=== PATIENT | female | born 1970 | race Caucasian/White ===

== ENCOUNTER → 2019-07-27 08:23 | Outpatient (CLI) | payer OTHER, SELFPAY ==
--- NOTE | ~2019-07-27 | MMUS_ITS ---
EXAMINATION: MM diagnostic [place] RT w cindy, US breast RT limited HISTORY: Six-month follow-up of probable benign 8 x 4 x 7 mm lobulated hypoechoic mass at 6:00 4 cm f rom nipple TECHNIQUE: ML, MLO and cc 3-D tomosynthesis images of the right breast were performed and synthetic 2 -D images were generated. CAD analysis was submitted and interpreted. High resolution targeted 6:00 r ight breast ultrasound was performed. COMPARISON: 01/09/2019 diagnostic right digital mammogram and limited right breast ultrasound FINDINGS: MAMMOGRAPHIC FINDINGS: A circumscribed low-density lobulated approximately 6 mm opacity is noted in the lower central right breast in the inner aspect of the lower inner quadrant of the right breast. ULTRASOUND: At 6:00 4 cm from the nipple there is a parallel circumscribed 6.4 x 4 mm sonolucency without interna l vascularity or posterior shadowing. This has mildly diminished in size compared to 7.7 x 3.5 x 7.1 mm measurement on 01/09/2019. IMPRESSION: 1. No mammographic evidence of malignancy 2. Routine mammographic screening follow-up is recommended BI-RADS Category 2: Benign finding(s). Reviewed, dictated and finalized at location A. [employer] IMPRESSION: 1. No mammographic evidence of malignancy 2. Routine mammographic screening follow-up is recommended BI-RADS Category 2: Benign finding(s).
== END ==
PROVIDERS: PCP Family Medicine; Visit Provider Nurse Practitioner Family
DX: R92.8 Other abnormal and inconclusive findings on diagnostic imaging of breast (principal)
CPT/HCPCS: 76642; 77061; 77065; G0279

== ENCOUNTER → 2020-12-05 16:24 | Outpatient (CLI) | payer OTHER, SELFPAY ==
--- NOTE | ~2020-12-05 | MM_ITS ---
EXAMINATION: MM screening [facility] BI w cindy HISTORY: Screening mammogram TECHNIQUE: Craniocaudal and mediolateral oblique 3-D tomosynthesis images were obtained and synthetic 2-D images were generated. CAD analysis was submitted and interpreted. COMPARISON: 07/27/2020, 01/09/2019, 12/27/2018, 11/16/2017 BREAST PARENCHYMAL COMPOSITION: There are scattered areas of fibroglandular density. FINDINGS: There is no evidence of suspicious mass, calcification, or architectural distortion to sugg est malignancy in either breast. There has been no suspicious interval change. IMPRESSION: 1. No mammographic evidence of malignancy. 2. Recommend routine screening mammography in one year. BI-RADS Category 1: Negative Reviewed, dictated and finalized at location A.
== END ==
PROVIDERS: PCP Family Medicine; Visit Provider Physician Assistant
DX: Z12.31 Encounter for screening mammogram for malignant neoplasm of breast (principal)
CPT/HCPCS: 77063; 77067

== ENCOUNTER → 2021-02-13 03:43 | Outpatient (CLI) | payer OTHER, SELFPAY ==
[2021-02-13 20:11] LABS: SARS-CoV-2 RNA PCR Negative
== END ==
PROVIDERS: PCP Family Medicine; Visit Provider Family Medicine
DX: R68.89 Other general symptoms and signs (principal); Z20.822 Contact with and (suspected) exposure to COVID-19
CPT/HCPCS: C9803; U0003; U0005

== ENCOUNTER → 2021-02-17 08:50 | Outpatient (CLI) | payer OTHER, SELFPAY ==
--- NOTE | ~2021-02-17 | XR_ITS ---
EXAMINATION: XR chest 2V EXAM DATE: 02/17/2021 09:03 INDICATION: J18.9 - Pneumonia, unspecified organism. TECHNIQUE: Frontal and lateral projections of the chest obtained and reviewed. Comparison is made to prior examination from 06/01/2017. FINDINGS: The lungs are clear. There are no pleural effusions. The cardiomediastinal silhouette is within normal limits. There is no pneumothorax suspected. The bones and soft tissues are unremarkab le. IMPRESSION: No acute cardiopulmonary findings. Reviewed, dictated and finalized at location A.
== END ==
PROVIDERS: PCP Family Medicine; Visit Provider Family Medicine
DX: J18.9 Pneumonia, unspecified organism (principal)
CPT/HCPCS: 71046

== ENCOUNTER → 2022-07-06 12:08 | Outpatient (CLI) | payer OTHER, SELFPAY ==
--- NOTE | ~2022-07-06 | MM_ITS ---
EXAMINATION: MM screening [place] BI w cindy HISTORY: Screening mammogram TECHNIQUE: Craniocaudal and mediolateral oblique 3-D tomosynthesis images were obtained and synthetic 2-D images were generated. CAD analysis was submitted and interpreted. COMPARISON: 12/05/2020 bilateral screening mammogram 07/27/2019 and 01/09/2019 diagnostic right mammogram and limited right breast ultrasound examinations 12/27/2018 bilateral screening mammogram BREAST PARENCHYMAL COMPOSITION: There are scattered areas of fibroglandular density. FINDINGS: There is no evidence of suspicious mass, calcification, or architectural distortion to sugg est malignancy in either breast. There has been no suspicious interval change. IMPRESSION: 1. No mammographic evidence of malignancy. 2. Recommend routine screening mammography in one year. BI-RADS Category 1: Negative Reviewed, dictated and finalized at location A. 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
== END ==
PROVIDERS: PCP Family Medicine; Visit Provider Family Medicine
DX: Z12.31 Encounter for screening mammogram for malignant neoplasm of breast (principal)
CPT/HCPCS: 77063; 77067

== ENCOUNTER 2023-05-08 10:08 | Emergency (ER) | payer OTHER, SELFPAY ==
--- NOTE | ~2023-05-08 | XR_ITS ---
EXAMINATION: XR ankle RT min 3V DATE: 05/08/2023 10:42 INDICATION: Right ankle injury and pain and swelling. TECHNIQUE: 4 views of right ankle were obtained. COMPARISON: None. FINDINGS: Bone alignment is normal. No fracture. Joint spaces are normal. There are enthesophytes at the posterior and plantar aspects of calcaneal tuberosity. Ankle soft tissue swelling is noted. IMPRESSION: 1. No fracture. Reviewed, dictated and finalized at location A. 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 No fracture.
[2023-05-08 10:23] VITALS: BP 140/82; PULSE 53; RESP 18; TEMP 36; O2SAT 98
--- NOTE | 2023-05-08 10:29 | ED.LOWEXIN ---
HPI - Extremity Injury (Lower) General Chief Complaint: Extremity Injury, Lower Stated Complaint: rt ankle injury Time Seen by Provider: 05/08/23 10:29 Source: patient Mode of arrival: ambulatory Limitations: no limitations History of Present Illness HPI Narrative: 53 yo F presents with c/o R ankle pain and swelling after twisting ankle last night while walking down stairs. Ambulatory with steady gait. wants x-ray to make sure no fracture. Has been taking ibuprofen and rachele ice. states i dont think it's broken . All systems reviewed and negative except as noted above. Related Data Allergies Allergy/AdvReac Type Severity Reaction Status Date / Time Penicillins Allergy Unknown rash Verified 02/15/23 08:36 Review of Systems Review of Systems: CONSTITUTIONAL: Denies fever, chills, or sweats. EYES: Denies visual changes, redness, or discharge. ENT: Denies rhinorrhea, congestion, sore throat, or otalgia. CARDIOVASCULAR: Denies chest pain, palpitations, or edema. RESPIRATORY: Denies cough or dyspnea. GASTROINTESTINAL: Denies abdominal pain, nausea, vomiting, or diarrhea. GENITOURINARY: Denies dysuria or hematuria. SKIN: Denies rash or itching. MUSCULOSKELETAL: Denies back pain or myalgia. reports pain and swelling to R ankle NEUROLOGIC: Denies headache, numbness, or weakness. PSYCHIATRIC: Denies anxiety or depression. All other systems reviewed are negative, except as documented in HPI. [facility] Past Medical History Medical History Breast mass, right Fatigue History of paroxysmal supraventricular tachycardia Major depressive disorder, recurrent, moderate Stress incontinence s/p mid urethral sling Supraventricular tachycardia Vitamin D insufficiency Surgical History Surgical History History of cardiac radiofrequency ablation History of hysterectomy History of left oophorectomy Status post creation of urethral sling by suprapubic approach Family History Family History Father Depression Mother Depression Family history of osteoarthritis Social History Social History Social History: Years smoked: 1 Smoking status: Former smoker Tobacco type: cigarettes Second hand tobacco smoke exposure: No Smoking end date: 06/27/90 Alcohol intake: current Alcohol use details: rarely Substance use: never Substance use type: does not use Lack of Transportation: No Lack of Food: Never True Current Housing: I Have Housing Concerned About Future Housing: No Difficulty Paying Gas/Electric Bills: No Difficulty Paying for Meds: No Currently Unemployed: No Education: Decline to Answer Difficulty w/ Childcare or Family Care: No Living arrangements: with family Occupation/Education: occupation Gender identity (if verbalized by the patient): Female Sexual Orientation (if Verbalized by the Patient): Straight or Heterosexual Comments At time of signature, agree with nursing past medical, surgical, social and family history. There is no relevant family history pertinent to the presenting complaint. Exam Narrative: GENERAL: This is a well-nourished, well-developed patient, in no apparent distress. HEAD: normocephalic, atraumatic. EYES: PERRL. Sclera clear/white. Vision is grossly intact. EARS: External ears normal NOSE: External nose normal NECK: Neck supple, non-tender without lymphadenopathy, masses or thyromegaly. CARDIOVASCULAR: Regular rate and rhythm without murmurs, gallops, or rubs. RESPIRATORY: Clear to auscultation. Breath sounds equal bilaterally. No wheezes, rales, or rhonchi. SKIN: warm, Dry, intact with no suspicious lesions or rash, good texture and turgor. NEURO: awake, alert, and oriented to person, place and time. There were n
== END 2023-05-08 11:09 | disposition home or self-care (01) ==
PROVIDERS: Emergency Provider Nurse Practitioner Family; PCP Family Medicine
DX: S93.401A Sprain of unspecified ligament of right ankle, initial encounter (principal); X50.9XXA Other and unspecified overexertion or strenuous movements or postures, initial encounter
CPT/HCPCS: 73610; 99213; G0463

== ENCOUNTER 2024-02-07 11:54 | Emergency (ER) | payer OTHER, SELFPAY ==
--- NOTE | ~2024-02-07 | XR_ITS ---
EXAMINATION: XR chest 2V DATE: 02/07/2024 12:14 INDICATION: Palpitations. TECHNIQUE: Frontal and lateral views of the chest were obtained. COMPARISON: Chest 2 views 02/17/2021 FINDINGS: There is no pneumonia, pleural effusion, or pneumothorax. The heart size is normal. IMPRESSION: 1. No acute cardiopulmonary disease. Reviewed, dictated and finalized at location A.
[2024-02-07 11:55] VITALS: BP 137/95; PULSE 114; RESP 16; TEMP 36.4; O2SAT 98
--- NOTE | 2024-02-07 11:55 | ECG_ITS ---
Test Date: 2024-02-07 11:59:56 Measurements Intervals [place] Rate: 109 P: 37 [place]: 131 QRS: 6 QRSD: 82 T: 0 QT: 269 QTc: 362 Interpretive Statements SINUS TACHYCARDIA WITH OCCASIONAL SUPRAVENTRICULAR PREMATURE COMPLEXES NONSPECIFIC T-WAVE ABNORMALITY ABNORMAL RHYTHM ECG No previous ECG available for comparison Electronically Signed On 02-07-2024 12:02:31 CDT by Mona Boyce M.D.
[2024-02-07 12:12] LABS: Basophils Absolute Auto 0.1 K/mm3 (0.0-0.1); Basophils Percent Auto 0.8 % (0.2-1.2); Eosinophils Absolute Auto 0.4 K/mm3 (0-0.3); Eosinophils Percent Auto 3.6 % (0-4.4); Hematocrit 46.2 % (37.0-47.0); Hemoglobin 15.8 g/dL (12.0-15.0); Immature Granulocyte Absolute 0.04 K/mm3 (0.00-0.031); Immature Granulocyte Percent A 0.4 % (0-0.5); Lymphocytes Absolute Auto 2.26 K/mm3 (0.9-3.2); Lymphocytes Percent Auto 20.6 % (18.3-44.2); Mean Corpuscular HGB Conc 34.2 g/dl (32-36); Mean Corpuscular Hemoglobin 32.7 pg (26-34); Mean Corpuscular Volume 95.7 fl (80-100); Mean Platelet Volume 9.4 fl (7.4-10.4); Monocytes Absolute Auto 0.8 K/mm3 (0.1-0.6); Monocytes Percent Auto 7.4 % (2.6-8.5); Neutrophils Absolute Auto 7.4 K/mm3 (1.3-6.7); Neutrophils Percent Auto 67.2 % (45.5-73.1); Platelet Count Result 256 k/mm3 (150-375); Red Blood Count 4.83 M/mm3 (4.2-5.4); Red Cell Distribution Width 12.6 % (11.5-14.5)
[2024-02-07 12:21] LABS: Alanine Aminotransferase 42 U/L (6-35); Albumin Level 4.6 g/dL (3.5-5.1); Alkaline Phosphatase 98 U/L (38-126); Anion Gap 12 mmol/L (4-12); Aspartate Amino Transferase 50 U/L (14-36); Bilirubin,Total 0.3 mg/dL (0.2-1.3); Blood Urea Nitrogen 14 mg/dL (7-17); Calcium 9.3 mg/dL (8.4-10.2); Carbon Dioxide 27 mmol/L (22-30); Chloride 100 mmol/L (98-107); Estimated CRCL calculation 71 ml/min; Estimated Glomerular Filt Rate > 60; Glucose 104 mg/dL (65-110); Lipase 100 U/L (23-300); Sodium 139 mmol/L (137-145)
[2024-02-07 12:29] LABS: INR 0.9
[2024-02-07 12:31] LABS: Partial Thromboplastin Time 26.1 Seconds (22.3-36.8)
[2024-02-07 12:33] LABS: Troponin I < 0.012 ng/mL (0.000-0.034)
[2024-02-07 14:02] VITALS: BP 132/103; PULSE 102; RESP 18; TEMP 36.6; O2SAT 98
[2024-02-07 14:17] VITALS: BP 143/118; PULSE 95; RESP 19; O2SAT 95
[2024-02-07] MEDS: SODIUM CHLORIDE 0.9% IV 2,000 ML 999 ML IV CONT (14:18)
[2024-02-07 14:32] VITALS: BP 128/97; PULSE 88; RESP 16; TEMP 36.6; O2SAT 95
[2024-02-07 14:42] LABS: NT Pro B Type Natriuretic Pept 97 pg/mL (19.9-100)
[2024-02-07 14:57] LABS: D Dimer 0.36 ug/mL (<0.48)
[2024-02-07 15:00] LABS: Influenza A QL RT-PCR Negative (Negative); Influenza B QL RT-PCR Negative (Negative); RSV RNA, RT-PCR Negative (Negative); SARS-CoV-2 RNA PCR Negative (Negative)
[2024-02-07 15:19] LABS: Troponin I < 0.012 ng/mL (0.000-0.034)
--- NOTE | 2024-02-07 15:30 | ED.GENADULT ---
HPI - General Adult General Chief complaint: Arrhythmia/Palpitations Stated complaint: palpitations Time Seen by Provider: 02/07/24 13:36 History of Present Illness HPI narrative: This is a 54-year-old female presenting ED with chief complaint palpitations. Patient says that for the last 10 days she has been feeling unwell with nausea, vomiting, sore throat, dizziness and diarrhea. Patient typically has a bowel movement about once a week but says she has been going to the bathroom 3 times a day. Those symptoms have been improving however earlier today she felt like she may faint. She has also developed what she describes as heart pains but sound like palpitations and a throbbing sensation chest. Patient denies fevers chills headache shortness breath abdominal pain lower extremity edema or history of blood clots. Related Data Home Medications Medication Instructions Recorded Confirmed venlafaxine 150 mg 150 mg PO DAILY 08/08/23 01/19/24 capsule,extended release 24 hr (Effexor XR) Allergies Allergy/AdvReac Type Severity Reaction Status Date / Time Penicillins Allergy Unknown rash Verified 02/07/24 11:54 [facility] Past Medical History Medical History Breast mass, right Fatigue History of paroxysmal supraventricular tachycardia Major depressive disorder, recurrent, moderate Stress incontinence s/p mid urethral sling Supraventricular tachycardia Vitamin D insufficiency Surgical History Surgical History History of cardiac radiofrequency ablation History of hysterectomy History of left oophorectomy Status post creation of urethral sling by suprapubic approach Family History Family History Father Depression Mother Depression Family history of osteoarthritis Social History Social History Social History: Years smoked: 1 Smoking status: Former smoker Tobacco type: cigarettes Second hand tobacco smoke exposure: No Smoking end date: 06/27/90 Alcohol intake: current Alcohol use details: rarely Substance use: never Substance use type: does not use Lack of Transportation: No Lack of Food: Never True Current Housing: I Have Housing Concerned About Future Housing: No Difficulty Paying Gas/Electric Bills: No Difficulty Paying for Meds: No Currently Unemployed: No Education: Decline to Answer Difficulty w/ Childcare or Family Care: No Living arrangements: with family Occupation/Education: occupation Gender identity (if verbalized by the patient): Female Sexual Orientation (if Verbalized by the Patient): Straight or Heterosexual Exam Narrative: APPEARANCE: No apparent distress. Head: atraumatic. EYES: EOMI, NOSE: Atraumatic NECK: Trachea midline RESPIRATORY: No increased rate of breathing clear to auscultation CARDIOVASCULAR: Intermittently tachycardic with variations in heart rate 90-110 during the interview. No peripheral edema ABDOMINAL: Non-distended soft nontender MUSCULOSKELETAl: No obvious deformities NEURO: Alert. Moving 4/4 extremities SKIN:: Warm, dry. Normal color PSYCHIATRIC: Normal affect Course Vital Signs Vital signs: Vital Signs Temperature 97.6 F 02/07/24 11:55 Pulse Rate 114 H 02/07/24 11:55 Respiratory Rate 16 02/07/24 11:55 Blood Pressure 137/95 H 02/07/24 11:55 Pulse Oximetry 98 02/07/24 11:55 Oxygen Delivery Room Air 02/07/24 11:55 Temperature 97.9 F 02/07/24 14:32 Pulse Rate 88 02/07/24 14:32 Respiratory Rate 16 02/07/24 14:32 Blood Pressure 128/97 H 02/07/24 14:32 Pulse Oximetry 95 02/07/24 14:32 Oxygen Delivery Room Air 02/07/24 11:55 Medical Decision Making MDM Narrative Medical decision making narrative: -Course: This is a 54-year-old female with a h
[2024-02-07 15:47] VITALS: BP 123/95; PULSE 94; RESP 18; TEMP 36.6; O2SAT 98
== END 2024-02-07 15:54 | disposition home or self-care (01) ==
PROVIDERS: Emergency Medicine; Emergency Provider Emergency Medicine; PCP Family Medicine
DX: R07.89 Other chest pain (principal); E86.0 Dehydration; R55 Syncope and collapse; R19.7 Diarrhea, unspecified; Z20.822 Contact with and (suspected) exposure to COVID-19; E55.9 Vitamin D deficiency, unspecified; F33.9 Major depressive disorder, recurrent, unspecified; Z87.891 Personal history of nicotine dependence; Z90.710 Acquired absence of both cervix and uterus; Z90.721 Acquired absence of ovaries, unilateral; Z79.899 Other long term (current) drug therapy; I49.1 Atrial premature depolarization; R00.0 Tachycardia, unspecified; R94.31 Abnormal electrocardiogram [ECG] [EKG]
CPT/HCPCS: 36415; 71046; 80053; 83690; 83880; 84443; 84484; 85025; 85380; 85610; 85730; 87637; 93005; 96360; 99284; J7030

== ENCOUNTER 2024-04-09 13:38 | Outpatient (CLI) | payer OTHER, SELFPAY ==
--- NOTE | ~2024-04-09 | CT_ITS ---
CT brain wo con Ordering provider: Bessy Arango PA-C History: 54 years Female with . R41.89 - Other symptoms and signs involving cognitive fun... . Comparison: June 01, 2017 Technique: CT of the head without contrast. Radiation reduction technique utilized. The dose-length product was 599.57 mGy-cm. FINDINGS: BRAIN PARENCHYMA AND CSF SPACES: Mild leukoaraiosis and diffuse cortical atrophy. Mild atheromatous d isease. No midline shift, mass effect or hemorrhage. The brain parenchyma and CSF spaces are otherwi se normal. VISUALIZED PARANASAL SINUSES: Well aerated. MASTOIDS: Well aerated. BONES: The bones appear intact. SOFT TISSUES: Visualized nasopharynx is normal. Superficial soft tissues are normal. IMPRESSION: No acute intracranial findings. Reviewed, dictated and finalized at location A.
== END 2024-04-09 13:39 | disposition home or self-care (01) ==
LOC: MICIMG 13:38
PROVIDERS: PCP Family Medicine; Visit Provider Physician Assistant
DX: R41.89 Other symptoms and signs involving cognitive functions and awareness (principal); R41.3 Other amnesia
CPT/HCPCS: 70450

== ENCOUNTER 2024-05-17 01:10 | Day surgery (SDC) | payer OTHER, SELFPAY ==
[2024-05-04 14:05] VITALS: BMI 32.3
[2024-05-17 09:42] VITALS: BP 133/87; PULSE 89; RESP 20; TEMP 36.1; O2SAT 98; BMI 32.2
--- NOTE | 2024-05-17 09:55 | SUR.PREOP ---
Dr. Silvestre at bedside. Pt stated only has bm once a week and has not had an bowel movements since taking the prep. Dr. Silvestre explained to pt why colon needs to be cleaned out and that the procedure will need to be canceled. Pt stated understanding.
== END 2024-05-17 10:04 | disposition home or self-care (01) ==
PROVIDERS: PCP Family Medicine; Visit Provider Surgery
PROC: 0DJD8ZZ Inspection of Lower Intestinal Tract, Via Natural or Artificial Opening Endoscopic (ICD-10-PCS; CPT 45378; principal; 2024-05-17 11:00)
DX: Z12.11 Encounter for screening for malignant neoplasm of colon (principal); Z53.8 Procedure and treatment not carried out for other reasons
CPT/HCPCS: 99211; G0463

== ENCOUNTER 2024-07-20 08:35 | Emergency (ER) | payer OTHER, SELFPAY ==
--- NOTE | ~2024-07-20 | CT_ITS ---
EXAMINATION: CT brain wo con DATE: 07/20/2024 09:09 INDICATION: Altered mental status TECHNIQUE: Computed tomography (CT) of the head was performed without intravenous contrast. Sagittal and coronal reconstructions were performed. The mA was adjusted according to patient size. Iterative reconstruction technique was employed. The dose-length product was 605.33 mGy-cm. COMPARISON: head CT dated 04/09/2024 FINDINGS: No acute intracranial hemorrhage, acute infarction or abnormal extra axial fluid collection. Ventricl es are normal and symmetric. No mass/mass effect. The orbits, paranasal sinuses and mastoid air cells are normal. IMPRESSION: 1. Normal brain. Reviewed, dictated and finalized at location A. ENTRY SUPERVISOR IMPRESSION: 1. Normal brain.
--- NOTE | 2024-07-20 08:38 | ED.GENADULT ---
HPI - General Adult General Chief complaint: Unspecified Stated complaint: confusion? Unknown amount of time? Time Seen by Provider: 07/20/24 08:38 Source: patient Mode of arrival: wheelchair Limitations: no limitations History of Present Illness HPI narrative: 54-year-old with a history of depression was sent from doctor's office with increased confusion for past days. Patient states that for the last several days having problems at work forgetting things. This morning while she was at doctor's office she had a gait imbalance she was sent to ER for evaluation. Patient presently denies having any headache or chest pain. She states that she has could does see a neurologist on an outpatient basis sometime next month. Onset (ago): week(s) Severity: moderate Treatments prior to arrival: none Related Data Home Medications ?Medication ?Instructions ?Recorded ?Confirmed ?Last Taken ?Type atomoxetine 40 mg capsule 40 mg PO DAILY 05/04/24 07/20/24 05/15/24 History bupropion HCl 75 mg tablet 75 mg PO DAILY 05/04/24 07/20/24 05/15/24 History venlafaxine 75 mg capsule,extended 75 mg PO DAILY 05/04/24 07/20/24 05/15/24 History release 24 hr Allergies Allergy/AdvReac Type Severity Reaction Status Date / Time Penicillins Allergy Unknown rash Verified 07/20/24 08:36 Review of Systems Review of Systems: All systems reviewed & are unremarkable except as noted in HPI and below Constitutional: Constitutional: Reports no additional constitutional complaints Eyes: Eyes: Reports no additional eye complaints ENT: Reports system reviewed and no additional complaints, except as documented Cardiovascular: Cardiovascular: Reports no additional cardiovascular complaints Respiratory: Respiratory: Reports no additional respiratory complaints Gastrointestinal: Gastrointestinal: Reports no additional gastrointestinal complaints Musculoskeletal: Musculoskeletal: Reports no additional musculoskeletal complaints Neurologic: Reports as per HPI Psychiatric: Psychiatric: Reports no additional psychiatric complaints Endocrine: Endocrine: Reports no additional endocrine complaints [facility] Past Medical History Medical History Stress incontinence s/p mid urethral sling History of paroxysmal supraventricular tachycardia Breast mass, right Fatigue Vitamin D insufficiency Major depressive disorder, recurrent, moderate Supraventricular tachycardia Surgical History Surgical History Status post creation of urethral sling by suprapubic approach History of cardiac radiofrequency ablation History of left oophorectomy History of hysterectomy Family History Family History Father Depression Mother Depression Family history of osteoarthritis Social History Social History Social History: Years smoked: 1 Smoking status: Former smoker Tobacco type: cigarettes Second hand tobacco smoke exposure: No Smoking end date: 06/27/90 Alcohol intake: current Alcohol use details: rarely Substance use: never Substance use type: does not use Do You Feel Safe in your Home?: Yes Lack of Transportation: No Lack of Food: Never True Current Housing: I Have Housing Concerned About Future Housing: No Difficulty Paying Gas/Electric Bills: No Difficulty Paying for Meds: No Currently Unemployed: No Education: Don't Know Difficulty w/ Childcare or Family Care: No Living arrangements: with family Occupation/Education: occupation Gender identity (if verbalized by the patient): Female Sexual Orientation (if Verbalized by the Patient): Straight or Heterosexual Spiritual care concerns: No Exam Narrative: GENERAL: Well-appearing, well-nourished, and in no acute distress. HEAD: Normocephalic, atraumatic. EYES: PERRLA and EOMI. ENT: Nares clear, no rhinorrhea or epistaxis. Mucous membranes moist. NECK: Supple. CHEST: Clear to auscultation. No respiratory distress. HEART: Regular rate and rhythm. No murmur heard. Normal peripheral pulses. ABDOMEN: Soft, nontender, nondistended, normal active bowel sounds. EXTREMITIES: Normal range of motion. No edema. SKIN: Warm, dry, no rash. NEURO: No focal deficits. Alert and oriented x3. PSYCH: Normal mood and affect. Course Course Emergency Course: Patient remained asymptomatic here she was able to ambulate without any difficulty. I did inform her about the lab work, CT findings. Advised her to follow-up with her primary doctor as well as a neurologist. Vital Signs Vital signs: Vital Signs Temperature 36.4 C 07/20/24 08:42 Pulse Rate 83 07/20/24 08:42 Respiratory Rate 16 07/20/24 08:42 Blood Pressure 150/98 H 07/20/24 08:42 Pulse Oximetry 100 07/20/24 08:42 Oxygen Delivery Room Air 07/20/24 08:42 Temperature 36.4 C 07/20/24 08:42 Pulse Rate 77 07/20/24 09:44 Respiratory Rate 16 07/20/24 09:44 Blood Pressure 133/105 H 07/20/24 09:44 Pulse Oximetry 97 07/20/24 09:44 Oxygen Delivery Room Air 07/20/24 08:42 Medical Decision Making Medical Records Medical records reviewed: Yes I reviewed the external patient's medical records. Vital Signs Vital Signs: Vital Signs Temperature 36.4 C 07/20/24 08:42 Pulse Rate 83 07/20/24 08:42 Respiratory Rate 16 07/20/24 08:42 Blood Pressure 150/98 H 07/20/24 08:42 Pulse Oximetry 100 07/20/24 08:42 Oxygen Delivery Room Air 07/20/24 08:42 Temperature 36.4 C 07/20/24 08:42 Pulse Rate 77 07/20/24 09:44 Respiratory Rate 16 07/20/24 09:44 Blood Pressure 133/105 H 07/20/24 09:44 Pulse Oximetry 97 07/20/24 09:44 Oxygen Delivery Room Air 07/20/24 08:42 Lab Data Lab results reviewed: Yes I reviewed the patient's lab results. 07/20/24 08:56 07/20/24 08:56 Labs: Lab Results 07/20/24 07/20/24 Range/Units 08:56 10:52 WBC 7.6 (4.5-10.0) K/mm3 RBC 4.88 (4.2-5.4) M/mm3 Hgb 15.4 H (12.0-15.0) g/dL Hct 46.1 (37.0-47.0) % MCV 94.5 (80-100) fl MCH 31.6 (26-34) pg MCHC 33.4 (32-36) g/dl RDW 12.4 (11.5-14.5) % Plt Count 256 (150-375) k/mm3 MPV 9.5 (7.4-10.4) fl Immature Gran % (Auto) 0.3 (0-0.5) % Neut % (Auto) 51.6 (45.5-73.1) % Lymph % (Auto) 35.3 (18.3-44.2) % [place] % (Auto) 6.9 (2.6-8.5) % Eos % (Auto) 4.7 H (0-4.4) % Baso % (Auto) 1.2 (0.2-1.2) % Lymph # (Auto) 2.70 (0.9-3.2) K/mm3 [place] # (Auto) 0.5 (0.1-0.6) K/mm3 Eos # (Auto) 0.4 H (0-0.3) K/mm3 Baso # (Auto) 0.1 (0.0-0.1) K/mm3 Abs Immat Gran (auto) 0.02 (0.00-0.031) K/mm3 Absolute Neuts (auto) 3.9 (1.3-6.7) K/mm3 Absolute Nucleated RBC 0.000 (0.0-0.012) K/mm3 Nucleated RBC % 0.0 (0.0-0.2) % Sodium 137 (137-145) mmol/L Potassium 4.3 (3.4-5.0) mmol/L Chloride 100 (98-107) mmol/L Carbon Dioxide 27 (22-30) mmol/L Anion Gap 10 (4-12) mmol/L BUN 12 (7-17) mg/dL Creatinine 0.97 (0.7-1.0) mg/dL Estim Creat Clear Calc 65 ml/min Estimated GFR 60 (59 - ) Glucose 109 (65-110) mg/dL Calcium 9.5 (8.4-10.2) mg/dL Total Bilirubin 0.8 (0.2-1.3) mg/dL AST 37 H (14-36) U/L ALT 41 H (6-35) U/L Alkaline Phosphatase 100 (38-126) U/L Total Protein 8.0 (6.3-8.2) g/dL Albumin 4.7 (3.5-5.1) g/dL Urine Color Yellow (Yellow) Urine Appearance Clear (Clear) Urine pH 7.5 (5.0-9.0) Ur Specific [place] 1.015 (1.001-1.035) Urine Protein Negative (Negative) mg/dL Urine Glucose (UA) Negative (Negative) mg/dL Urine Ketones 2+ H (Negative) mg/dL Ur Blood (Man) Negative (Negative) Urine Nitrate Negative (Negative) Urine Bilirubin Negative (Negative) Urine Urobilinogen 1.0 (<2.0) mg/dL Leukocyte Esterase Rfl Negative (Negative) UZMA/UL Imaging Data Radiologist's impression: ITS Impressions Head CT 07/20/24 09:11 IMPRESSION: 1. Normal brain. ECG Data EKG #1: ECG completion date: 07/20/24 ECG completion time: 08:50 EKG Interpretation: normal rate (82), sinus rhythm, non-specific ST changes and no ST changes Discharge Plan Discharge Clinical Impression: Altered mental status Qualifiers: Altered mental status type: unspecified Qualified Code(s): R41.82 - Altered mental status, unspecified Patient Disposition: Home, Self-Care Condition: Stable Instructions: Antibiotic Form, Altered Mental Status (ED) Additional Instructions: continue home medications, follow with your doctor. Patient Language: Yi Prescriptions: No Action fluoxetine 20 mg capsule 20 mg PO QPM Qty: 30 1RF fluoxetine 40 mg capsule 40 mg PO QAM Qty: 30 1RF carvedilol 12.5 mg tablet 12.5 mg PO Q12H Qty: 60 4RF Rx Instructions: must administer with a meal/food memantine [Namenda] 5 mg tablet 5 mg PO BID Qty: 60 2RF omeprazole 20 mg capsule,delayed release(DR/EC) 20 mg PO DAILY 56 Days Qty: 56 0RF venlafaxine 75 mg capsule,extended release 24hr 75 mg PO DAILY bupropion HCl 75 mg Tablet 75 mg PO DAILY atomoxetine 40 mg Capsule 40 mg PO DAILY buspirone 10 mg tablet 10 mg PO TID Qty: 90 0RF Follow-up/Referrals: Patricio Mays MD [Primary Care Provider] - Time of Disposition: 11:33
--- NOTE | 2024-07-20 08:39 | ECG_ITS ---
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
[2024-07-20 08:42] VITALS: BP 150/98; PULSE 83; RESP 16; TEMP 36.4; O2SAT 100
--- OUTSIDE RECORDS SUMMARY | 2024-07-20 08:47 | XMS_ITS | Continuity of Care Document ---
Author Name [facility] Organization [facility] Care Team Providers Care Wood Box Maker Name Role Phone [facility] Unavailable Unavailable Allergies, Adverse Reactions, Alerts Combined list of allergies from Department of Defense and [facility] facilities. It does not include entries that were removed or entered in error. Substance Category Reaction Severity Reaction type Status Date Reported Comments Source PENICILLIN G (PENICILLIN G PROCAINE) Drug allergy (disorder) Unknown active 01/22/2008 [facility] [place] Encounters Combined list of: 1) Encounters from Department [facility] facilities going back up to thelast 18 months. 2) Encounters from the Department [facility] facilities going back up to 280 months. Location Location Details Encounter Type Encounter Number Reason For Visit Attending Provider ADM Date DC Date Status Disposition Source [facility] Outpatient Encounter [id number] 11/28 [facility] Procedures Combined list of: 1) Procedures from Department of [facility] facilities going back up to thelast 18 months, not all [place] non-surgical procedures are included; 2) All procedures from the Department [facility] facilities. Procedure Procedure Type Code Date Perfomer Comments Sourc e EKG (SCALP) 12/30/1992 [facility] EVACUATION OF OTHER HEMATOMA OF VULVA OR VAGINA 12/30/1992 [facility] REPAIR OF OTHER CURRENT OBSTETRIC LACERATION 12/30/1992 [facility] SCREENING PAPANICOLAOU SMEAR ; OBTAINING, PREPARING AND CONVEYANCE OF CERVICAL OR VAGINAL SMEAR TO LABORATORY 03/06/2004 [facility] DETERMINATION OF VENOUS PRESSURE 10/21/2003 [facility] SPECIAL REPORTS SUCH INSURANCE FORMS, MORE THAN THE INFORMATION CONVEYED IN THE USUAL MEDICAL COMMUNICATIONS OR STANDARD REPORTING FORM 08/16/2003 [facility] URINE TEST, BY VISUAL COLOR COMPARISON METHODS 08/13/2003 [facility] SCREENING PAPANICOLAOU SMEAR ; OBTAINING, PREPARING AND CONVEYANCE OF CERVICAL OR VAGINAL SMEAR TO LABORATORY 12/25/2002 [facility]D NONINVASIVE EAR OR PULSE OXIMETRY FOR OXYGEN SATURATION; SINGLE DETERMINATION 09/09/2002 [facility]D NONINVASIVE EAR OR PULSE OXIMETRY FOR OXYGEN SATURATION; SINGLE DETERMINATION 07/07/2002 [facility]D SPECIAL REPORTS SUCH INSURANCE FORMS, MORE THAN THE INFORMATION CONVEYED IN THE USUAL MEDICAL COMMUNICATIONS OR STANDARD REPORTING FORM 12/26/2001 [facility] SCREENING PAPANICOLAOU SMEAR ; OBTAINING, PREPARING AND CONVEYANCE OF CERVICAL OR VAGINAL SMEAR TO LABORATORY 10/16/2001 [facility] PSYCHIATRIC EVALUATION OF HOSPITAL RECORDS, OTHER PSYCHIATRIC REPORTS, PSYCHOMETRIC AND/OR PROJECTIVE TESTS, AND OTHER ACCUMULATED DATA FOR MEDICALDIAGNOSTIC PURPOSES 11/29/2000 [facility] PREPARATION OF REPORT OF PATIENT'S PSYCHIATRIC STATUS, HISTORY, TREATMENT, OR PROGRESS (OTHER THAN FOR LEGAL OR CONSULTATIVE PURPOSES) FOR OTHER INDIVIDUALS, AGENCIES, OR INSURANCE CARRIERS 11/28/2000 [facility] INDIVIDUAL PSYCHOTHERAPY, INSIGHT ORIENTED, BEHAVIOR MODIFYING AND/OR SUPPORTIVE, IN AN OFFICE OR OUTPATIENT FACILITY, APPROXIMATELY 45 TO 50 MINUTES [id number] WITH THE PATIENT 10/04/2000 [facility] COLPOSCOPY OF THE CERVIX INCLUDING UPPER/ADJACENT VAGINA; 10/03/2000 [facility] PSYCHIATRIC EVALUATION OF HOSPITAL RECORDS, OTHER PSYCHIATRIC REPORTS, PSYCHOMETRIC AND/OR PROJECTIVE TESTS, AND OTHER ACCUMULATED DATA FOR MEDICALDIAGNOSTIC PURPOSES 09/29/2000 [facility] DOPPLER ECHOCARDIOGRAPHY COLOR FLOW VELOCITY MAPPING (LIST SEPARATELY IN ADDITION TO CODES FOR ECHOCARDIOGRAPHY) 09/26/2000 [facility] ANALYSIS OF CLINICAL DATA STORED IN COMPUTERS (EG, ECGS, BLOOD PRESSURES, HEMATOLOGIC DATA) 09/23/2000 [facility] ELECTROCARDIOGRAM, ROUTINE ECG WITH AT LEAST 12 LEADS; TRACING ONLY, WITHOUT INTERPRETATION AND REPORT 09/22/2000 [facility] INDIVIDUAL PSYCHOTHERAPY, INSIGHT ORIENTED, BEHAVIOR MODIFYING AND/OR SUPPORTIVE, IN AN OFFICE OR OUTPATIENT FACILITY, APPROXIMATELY 45 TO 50 MINUTES [id number] WITH THE PATIENT 09/22/2000 [facility] FAMILY PSYCHOTHERAPY (CONJOINT PSYCHOTHERAPY) (WITH PATIENT PRESENT), 50 MINUTES 09/16/2000 [facility] INDIVIDUAL PSYCHOTHERAPY, INSIGHT ORIENTED, BEHAVIOR MODIFYING AND/OR SUPPORTIVE, IN AN OFFICE OR OUTPATIENT FACILITY, APPROXIMATELY 45 TO 50 MINUTES [id number] WITH THE PATIENT 09/16/2000 [facility] INDIVIDUAL PSYCHOTHERAPY, INSIGHT ORIENTED, BEHAVIOR MODIFYING AND/OR SUPPORTIVE, IN AN OFFICE OR OUTPATIENT FACILITY, APPROXIMATELY 45 TO 50 MINUTES [id number] WITH THE PATIENT 09/09/2000 [facility] INDIVIDUAL PSYCHOTHERAPY, INSIGHT ORIENTED, BEHAVIOR MODIFYING AND/OR SUPPORTIVE, IN AN OFFICE OR OUTPATIENT FACILITY, APPROXIMATELY 45 TO 50 MINUTES [id number] WITH THE PATIENT 09/01/2000 [facility] FAMILY PSYCHOTHERAPY (CONJOINT PSYCHOTHERAPY) (WITH PATIENT PRESENT), 50 MINUTES 08/30/2000 [facility] INDIVIDUAL PSYCHOTHERAPY, INSIGHT ORIENTED, BEHAVIOR MODIFYING AND/OR SUPPORTIVE, IN AN OFFICE OR OUTPATIENT FACILITY, APPROXIMATELY 45 TO 50 MINUTES [id number] WITH THE PATIENT 08/24/2000 [facility] PSYCHIATRIC DIAGNOSTIC INTERVIEW EXAMINATION 08/22/2000 [facility] THERAPEUTIC, PROPHYLACTIC OR DIAGNOSTIC INJECTION (SPECIFY MATERIAL INJECTED); SUBCUTANEOUS OR INTRAMUSCULAR 07/13/2000 DoD COLPOSCOPY OF THE CERVIX INCLUDING UPPER/ADJACENT VAGINA; 05/17/2000 DoD EAR PROTECTOR ATTENUATION MEASUREMENTS 04/13/2000 DoD HEPATITIS B VACCINE (HEPB), ADULT DOSAGE, 3 DOSE SCHEDULE, FOR INTRAMUSCULAR USE 04/08/2000 DoD Social History Combined list of available smoking, tobacco, and other social history from Department of Defense and Veterans Affairs facilities. Social History Type Response Date Comment Sourc e This section is an empty social history section. DoD
[2024-07-20 09:01] LABS: Basophils Absolute Auto 0.1 K/mm3 (0.0-0.1); Basophils Percent Auto 1.2 % (0.2-1.2); Eosinophils Absolute Auto 0.4 K/mm3 (0-0.3); Eosinophils Percent Auto 4.7 % (0-4.4); Hematocrit 46.1 % (37.0-47.0); Hemoglobin 15.4 g/dL (12.0-15.0); Immature Granulocyte Absolute 0.02 K/mm3 (0.00-0.031); Immature Granulocyte Percent A 0.3 % (0-0.5); Lymphocytes Percent Auto 35.3 % (18.3-44.2); Mean Corpuscular HGB Conc 33.4 g/dl (32-36); Mean Corpuscular Hemoglobin 31.6 pg (26-34); Mean Corpuscular Volume 94.5 fl (80-100); Mean Platelet Volume 9.5 fl (7.4-10.4); Monocytes Absolute Auto 0.5 K/mm3 (0.1-0.6); Monocytes Percent Auto 6.9 % (2.6-8.5); Neutrophils Absolute Auto 3.9 K/mm3 (1.3-6.7); Neutrophils Percent Auto 51.6 % (45.5-73.1); Platelet Count Result 256 k/mm3 (150-375); Red Blood Count 4.88 M/mm3 (4.2-5.4); Red Cell Distribution Width 12.4 % (11.5-14.5); White Blood Count 7.6 K/mm3 (4.5-10.0)
[2024-07-20 09:08] VITALS: PULSE 83
[2024-07-20 09:12] LABS: Alanine Aminotransferase 41 U/L (6-35); Albumin Level 4.7 g/dL (3.5-5.1); Alkaline Phosphatase 100 U/L (38-126); Anion Gap 10 mmol/L (4-12); Aspartate Amino Transferase 37 U/L (14-36); Bilirubin,Total 0.8 mg/dL (0.2-1.3); Blood Urea Nitrogen 12 mg/dL (7-17); Calcium 9.5 mg/dL (8.4-10.2); Carbon Dioxide 27 mmol/L (22-30); Chloride 100 mmol/L (98-107); Estimated CRCL calculation 65 ml/min; Estimated Glomerular Filt Rate 60; Glucose 109 mg/dL (65-110); Potassium 4.3 mmol/L (3.4-5.0); Sodium 137 mmol/L (137-145)
--- OUTSIDE RECORDS SUMMARY | 2024-07-20 09:35 | XMS_ITS | Continuity of Care Document ---
Author Name [facility] Organization [facility] Care Team Providers Care Percussion Welding Machine Operator Name Role Phone [facility] Unavailable Unavailable Allergies, Adverse Reactions, Alerts Combined list of allergies from Department of Defense and [facility] facilities. It does not include entries that were removed or entered in error. Substance Category Reaction Severity Reaction type Status Date Reported Comments Source PENICILLIN G (PENICILLIN G PROCAINE) Drug allergy (disorder) Unknown active 01/22/2008 [facility] [place] Encounters Combined list of: 1) Encounters from [facility] facilities going back up to thelast 18 months. 2) Encounters from the Department [facility] facilities going back up to 280 months. Location Location Details Encounter Type Encounter Number Reason For Visit Attending Provider ADM Date DC Date Status Disposition Source [facility] Outpatient Encounter [id number] 11/28 [facility] Procedures Combined list of: 1) Procedures from Department of [facility] facilities going back up to thelast 18 months, not all [place] non-surgical procedures are included; 2) All procedures from the Department [facility] facilities. Procedure Procedure Type Code Date Perfomer Comments Sourc e EKG (SCALP) 12/30/1992 [facility] EVACUATION OF OTHER HEMATOMA OF VULVA OR VAGINA 12/30/1992 [facility] REPAIR OF OTHER CURRENT OBSTETRIC LACERATION 12/30/1992 [facility] SCREENING PAPANICOLAOU SMEAR ; OBTAINING, PREPARING AND CONVEYANCE OF CERVICAL OR VAGINAL SMEAR TO LABORATORY 03/06/2004 [facility] DETERMINATION OF VENOUS PRESSURE 10/21/2003 DoD SPECIAL REPORTS SUCH INSURANCE FORMS, MORE THAN THE INFORMATION CONVEYED IN THE USUAL MEDICAL COMMUNICATIONS OR STANDARD REPORTING FORM 08/16/2003 DoD URINE TEST, BY VISUAL COLOR COMPARISON METHODS 08/13/2003 [facility] SCREENING PAPANICOLAOU SMEAR ; OBTAINING, PREPARING AND CONVEYANCE OF CERVICAL OR VAGINAL SMEAR TO LABORATORY 12/25/2002 DoD NONINVASIVE EAR OR PULSE OXIMETRY FOR OXYGEN SATURATION; SINGLE DETERMINATION 09/09/2002 DoD NONINVASIVE EAR OR PULSE OXIMETRY FOR OXYGEN SATURATION; SINGLE DETERMINATION 07/07/2002 DoD SPECIAL REPORTS SUCH INSURANCE FORMS, MORE THAN THE INFORMATION CONVEYED IN THE USUAL MEDICAL COMMUNICATIONS OR STANDARD REPORTING FORM 12/26/2001 [facility] SCREENING PAPANICOLAOU SMEAR ; OBTAINING, PREPARING AND CONVEYANCE OF CERVICAL OR VAGINAL SMEAR TO LABORATORY 10/16/2001 [facility]D PSYCHIATRIC EVALUATION OF HOSPITAL RECORDS, OTHER PSYCHIATRIC REPORTS, PSYCHOMETRIC AND/OR PROJECTIVE TESTS, AND OTHER ACCUMULATED DATA FOR MEDICALDIAGNOSTIC PURPOSES 11/29/2000 [facility] PREPARATION OF REPORT OF PATIENT'S PSYCHIATRIC STATUS, HISTORY, TREATMENT, OR PROGRESS (OTHER THAN FOR LEGAL OR CONSULTATIVE PURPOSES) FOR OTHER INDIVIDUALS, AGENCIES, OR INSURANCE CARRIERS 11/28/2000 [facility] INDIVIDUAL PSYCHOTHERAPY, INSIGHT ORIENTED, BEHAVIOR MODIFYING AND/OR SUPPORTIVE, IN AN OFFICE OR OUTPATIENT FACILITY, APPROXIMATELY 45 TO 50 MINUTES [id number] WITH THE PATIENT 10/04/2000 [facility]D COLPOSCOPY OF THE CERVIX INCLUDING UPPER/ADJACENT VAGINA; 10/03/2000 [facility] PSYCHIATRIC EVALUATION OF HOSPITAL RECORDS, OTHER PSYCHIATRIC REPORTS, PSYCHOMETRIC AND/OR PROJECTIVE TESTS, AND OTHER ACCUMULATED DATA FOR MEDICALDIAGNOSTIC PURPOSES 09/29/2000 [facility] DOPPLER ECHOCARDIOGRAPHY COLOR FLOW VELOCITY MAPPING (LIST SEPARATELY IN ADDITION TO CODES FOR ECHOCARDIOGRAPHY) 09/26/2000 [facility] ANALYSIS OF CLINICAL DATA STORED IN COMPUTERS (EG, ECGS, BLOOD PRESSURES, HEMATOLOGIC DATA) 09/23/2000 [facility] ELECTROCARDIOGRAM, ROUTINE ECG WITH AT LEAST 12 LEADS; TRACING ONLY, WITHOUT INTERPRETATION AND REPORT 09/22/2000 [facility] INDIVIDUAL PSYCHOTHERAPY, INSIGHT ORIENTED, BEHAVIOR MODIFYING AND/OR SUPPORTIVE, IN AN OFFICE OR OUTPATIENT FACILITY, APPROXIMATELY 45 TO 50 MINUTES [id number] WITH THE PATIENT 09/22/2000 DoD FAMILY PSYCHOTHERAPY (CONJOINT PSYCHOTHERAPY) (WITH PATIENT PRESENT), 50 MINUTES 09/16/2000 DoD INDIVIDUAL PSYCHOTHERAPY, INSIGHT ORIENTED, BEHAVIOR MODIFYING AND/OR SUPPORTIVE, IN AN OFFICE OR OUTPATIENT FACILITY, APPROXIMATELY 45 TO 50 MINUTES [id number] WITH THE PATIENT 09/16/2000 [facility] INDIVIDUAL PSYCHOTHERAPY, INSIGHT ORIENTED, BEHAVIOR MODIFYING AND/OR SUPPORTIVE, IN AN OFFICE OR OUTPATIENT FACILITY, APPROXIMATELY 45 TO 50 MINUTES [id number] WITH THE PATIENT 09/09/2000 [facility] INDIVIDUAL PSYCHOTHERAPY, INSIGHT ORIENTED, BEHAVIOR MODIFYING AND/OR SUPPORTIVE, IN AN OFFICE OR OUTPATIENT FACILITY, APPROXIMATELY 45 TO 50 MINUTES [id number] WITH THE PATIENT 09/01/2000 DoD FAMILY PSYCHOTHERAPY (CONJOINT PSYCHOTHERAPY) (WITH PATIENT PRESENT), 50 MINUTES 08/30/2000 DoD INDIVIDUAL PSYCHOTHERAPY, INSIGHT ORIENTED, BEHAVIOR MODIFYING AND/OR SUPPORTIVE, IN AN OFFICE OR OUTPATIENT FACILITY, APPROXIMATELY 45 TO 50 MINUTES [id number] WITH THE PATIENT 08/24/2000 [facility]D PSYCHIATRIC DIAGNOSTIC [...]
[2024-07-20 09:44] VITALS: BP 133/105; PULSE 77; RESP 16; O2SAT 97
[2024-07-20 10:58] LABS: Add Urine Microscopic? NO; Appearance Urine Clear (Clear); Bilirubin Urine Negative (Negative); Blood Urine Negative (Negative); Color Urine Yellow (Yellow); Glucose Urine UA Negative (Negative); Ketones Urine 2+ mg/dL (Negative); Leukocyte Esterase Ur Negative LEU/UL (Negative); Nitrate Urine Negative (Negative); Protein Urine Negative (Negative); Specific Grav Ur 1.015 (1.001-1.035); pH Urine 7.5 (5.0-9.0)
--- NOTE | 2024-07-20 11:25 | PC.NURSE ---
Walked pretty good with no help to the restroom
[2024-07-20 12:14] VITALS: BP 122/94; PULSE 74; RESP 20; O2SAT 100
== END 2024-07-20 12:16 | disposition home or self-care (01) ==
PROVIDERS: Emergency Provider Family Medicine; PCP Family Medicine
DX: R41.82 Altered mental status, unspecified (principal); E55.9 Vitamin D deficiency, unspecified; F33.9 Major depressive disorder, recurrent, unspecified; Z87.891 Personal history of nicotine dependence; Z90.710 Acquired absence of both cervix and uterus; Z90.721 Acquired absence of ovaries, unilateral; Z79.899 Other long term (current) drug therapy
CPT/HCPCS: 36415; 70450; 80053; 81003; 85025; 93005; 99284

== ENCOUNTER 2024-08-21 08:55 | Outpatient (CLI) | payer OTHER, SELFPAY ==
--- OUTSIDE RECORDS SUMMARY | 2024-08-21 09:38 | XMS_ITS | Clinical Summary ---
Author Organization [facility] [place] [place] [address] Address [address] [place] [address] Care Team Providers Care Metal Base Blocker Name Role Phone Marquita Rodríguez MD Primary Care Provider Allergies Active Allergy Reactions Criticality Noted Date Comments Penicillins Other (See comments) Reaction: Unknown, , , Reaction: Unknown, Medications venlafaxine (EFFEXOR) 75 mg tablet Take 75 mg by mouth daily. 05/11/2017 Active carvedilol (COREG) 25 mg tablet Take 25 mg by mouth 2 (two) times a day with meals. Active cholecalciferol (VITAMIN D-3) 50,000 unit capsuleIndicati ons:Vitamin D Deficiency (High Dose Therapy) Take 1 capsule (50,000 Units total) by mouth once a week. 4 capsule 3 06/21/2017 Active Active Problems Problem Noted Date Diagnosed Date History of prior ablation treatment 06/10/2017 Palpitations 06/10/2017 PSVT (paroxysmal supraventricular tachycardia) Surgical History Surgery Date Site/Laterality Comments OTHER SURGICAL HISTORY 2004 AVRT ablation OTHER SURGICAL HISTORY R atrial ablation- 09/17/03 OTHER SURGICAL HISTORY ablation isolation of R pulm veins- 09/28/03 OTHER SURGICAL HISTORY hysterectomy with right oophorectomy Medical History Medical History Date Comments Hx Other Medical Cardiomyopathy- resolved (tachy induced) Hx Other Medical AVRT- s/p ablat ion Hx Other Medical hx tobacco use PSVT (paroxysmal supraventri cular tachycardia) (HCC) Cardiomyopathy (HCC) Social History Tobacco Use Types Packs/Day Years Used Date Smoking Tobacco: Former Smokeless Tobacco: Never Alcohol Use Standard Drinks/Week Comments Yes 0 (1 standard drink = 0.6 oz pur e alcohol) Personal Safety Answer Date Recorded Getting School Help Needed Not on file 09/10 Comments Unknown Sex and Gender Information Value Date Recorded Sex Assigned at Not on file Legal Sex Female 2:00 AM EQUIPMENT OPERATOR Gender Identity Not on file Sexual Orientation Not on file Obstetrics History Last Filed Vital Signs Vital Sign Reading Time Taken Comments Blood Pressure 96/70 06/10/2017 9:14 AM EQUIPMENT OPERATOR Pulse 90 07/05/2017 11:49 AM EQUIPMENT OPERATOR Temperature 36.4 C (97.5 F) 07/03/2020 8:16 AM EQUIPMENT OPERATOR Respiratory Rate - - Oxygen Saturation 95% 07/05/2017 11: 49 AM EQUIPMENT OPERATOR Inhaled Oxygen Concentration - - Weight 83.9 kg (184 lb 14.4 oz) 018 11:49 AM EQUIPMENT OPERATOR Height 168.9 cm (5' 6.5 ) 07/05/2017 11 :49 AM EQUIPMENT OPERATOR Body Mass Index 29.4 07/05/2017 11:49 AM EQUIPMENT OPERATOR Plan of Treatment Not on file Insurance [facility] HMO/PPO Address: [address] [address] Care Teams Metal Base Blocker Relationship Specialty Start Date End Date Marquita Rodríguez MD [address] [facility] [address] [place] [address] [facility] - General 01/18/14
--- OUTSIDE RECORDS SUMMARY | 2024-08-21 09:38 | XMS_ITS | Continuity of Care Document ---
Author Name [facility] Organization [facility] Care Team Providers Care Push Bench Operator Helper Name Role Phone [facility] Unavailable Unavailable Allergies, Adverse Reactions, Alerts Combined list of allergies from Department of Defense and Veterans Affairs facilities. It does not include entries that were removed or entered in error. Substance Category Reaction Severity Reaction type Status Date Reported Comments Source PENICILLIN G (PENICILLIN G PROCAINE) Drug allergy (disorder) Unknown active 01/22/2008 [facility] [place] Encounters Combined list of: 1) Encounters from [facility] facilities going backup to the last 18 months, not all [place] inpatient encounters are included; 2) Encounters from the Department [facility] facilities going backup to 280 months. Location Location Details Encounter Type Encounter Number Reason For Visit Attending Provider ADM Date DC Date Status Disposition Source [facility] Outpatient Encounter [id number] 11/28 [facility] Procedures Combined list of: 1) Procedures from Department [facility] facilities going back up to thelast 18 months, not all [place] non-surgical procedures are included; 2) All procedures from the [facility] facilities. Procedure Procedure Type Code Date Perfomer Comments Sourc e EKG (SCALP) 12/30/1992 [facility] EVACUATION OF OTHER HEMATOMA OF VULVA OR VAGINA 12/30/1992 [facility] REPAIR OF OTHER CURRENT OBSTETRIC LACERATION 12/30/1992 [facility] SCREENING PAPANICOLAOU SMEAR ; OBTAINING, PREPARING AND CONVEYANCE OF CERVICAL OR VAGINAL SMEAR TO LABORATORY 03/06/2004 [facility] DETERMINATION OF VENOUS PRESSURE 10/21/2003 [facility]D SPECIAL REPORTS SUCH INSURANCE FORMS, MORE THAN THE INFORMATION CONVEYED IN THE USUAL MEDICAL COMMUNICATIONS OR STANDARD REPORTING FORM 08/16/2003 DoD URINE TEST, BY VISUAL COLOR COMPARISON METHODS 08/13/2003 [facility] SCREENING PAPANICOLAOU SMEAR ; OBTAINING, PREPARING AND CONVEYANCE OF CERVICAL OR VAGINAL SMEAR TO LABORATORY 12/25/2002 DoD NONINVASIVE EAR OR PULSE OXIMETRY FOR OXYGEN SATURATION; SINGLE DETERMINATION 09/09/2002 DoD NONINVASIVE EAR OR PULSE OXIMETRY FOR OXYGEN SATURATION; SINGLE DETERMINATION 07/07/2002 DoD SPECIAL REPORTS SUCH INSURANCE FORMS, MORE THAN THE INFORMATION CONVEYED IN THE USUAL MEDICAL COMMUNICATIONS OR STANDARD REPORTING FORM 12/26/2001 [facility] SCREENING PAPANICOLAOU SMEAR ; OBTAINING, PREPARING AND CONVEYANCE OF CERVICAL OR VAGINAL SMEAR TO LABORATORY 10/16/2001 [facility] PSYCHIATRIC EVALUATION OF HOSPITAL RECORDS, OTHER PSYCHIATRIC REPORTS, PSYCHOMETRIC AND/OR PROJECTIVE TESTS, AND OTHER ACCUMULATED DATA FOR MEDICALDIAGNOSTIC PURPOSES 11/29/2000 [facility] PREPARATION OF REPORT OF PATIENT'S PSYCHIATRIC STATUS, HISTORY, TREATMENT, OR PROGRESS (OTHER THAN FOR LEGAL OR CONSULTATIVE PURPOSES) FOR OTHER INDIVIDUALS, AGENCIES, OR INSURANCE CARRIERS 11/28/2000 [facility]D INDIVIDUAL PSYCHOTHERAPY, INSIGHT ORIENTED, BEHAVIOR MODIFYING AND/OR SUPPORTIVE, IN AN OFFICE OR OUTPATIENT FACILITY, APPROXIMATELY 45 TO 50 MINUTES [id number] WITH THE PATIENT 10/04/2000 [facility] COLPOSCOPY OF THE CERVIX INCLUDING UPPER/ADJACENT VAGINA; 10/03/2000 [facility] PSYCHIATRIC EVALUATION OF HOSPITAL RECORDS, OTHER PSYCHIATRIC REPORTS, PSYCHOMETRIC AND/OR PROJECTIVE TESTS, AND OTHER ACCUMULATED DATA FOR MEDICALDIAGNOSTIC PURPOSES 09/29/2000 [facility] DOPPLER ECHOCARDIOGRAPHY COLOR FLOW VELOCITY MAPPING (LIST SEPARATELY IN ADDITION TO CODES FOR ECHOCARDIOGRAPHY) 09/26/2000 [facility] ANALYSIS OF CLINICAL DATA STORED IN COMPUTERS (EG, ECGS, BLOOD PRESSURES, HEMATOLOGIC DATA) 09/23/2000 [facility] ELECTROCARDIOGRAM, ROUTINE ECG WITH AT LEAST 12 LEADS; TRACING ONLY, WITHOUT INTERPRETATION AND REPORT 09/22/2000 [facility] INDIVIDUAL PSYCHOTHERAPY, INSIGHT ORIENTED, BEHAVIOR MODIFYING AND/OR SUPPORTIVE, IN AN OFFICE OR OUTPATIENT FACILITY, APPROXIMATELY 45 TO 50 MINUTES [id number] WITH THE PATIENT 09/22/2000 DoD FAMILY PSYCHOTHERAPY (CONJOINT PSYCHOTHERAPY) (WITH PATIENT PRESENT), 50 MINUTES 09/16/2000 [facility]D INDIVIDUAL PSYCHOTHERAPY, INSIGHT ORIENTED, BEHAVIOR MODIFYING AND/OR SUPPORTIVE, IN AN OFFICE OR OUTPATIENT FACILITY, APPROXIMATELY 45 TO 50 MINUTES [id number] WITH THE PATIENT 09/16/2000 [facility] INDIVIDUAL PSYCHOTHERAPY, INSIGHT ORIENTED, BEHAVIOR MODIFYING AND/OR SUPPORTIVE, IN AN OFFICE OR OUTPATIENT FACILITY, APPROXIMATELY 45 TO 50 MINUTES [id number] WITH THE PATIENT 09/09/2000 [facility] INDIVIDUAL PSYCHOTHERAPY, INSIGHT ORIENTED, BEHAVIOR MODIFYING AND/OR SUPPORTIVE, IN AN OFFICE OR OUTPATIENT FACILITY, APPROXIMATELY 45 TO 50 MINUTES [id number] WITH THE PATIENT 09/01/2000 DoD FAMILY PSYCHOTHERAPY (CONJOINT PSYCHOTHERAPY) (WITH PATIENT PRESENT), 50 MINUTES 08/30/2000 [facility]D INDIVIDUAL PSYCHOTHERAPY, INSIGHT ORIENTED, BEHAVIOR MODIFYING AND/OR SUPPORTIVE, IN AN OFFICE OR OUTPATIENT FACILITY, APPROXIMATELY 45 TO 50 MINUTES [id number] WITH THE PATIENT 08/24/2000 DoD PSYCHIATRIC DIAGNOSTIC [...] facilities. Social History Type Response Date Comment Sour e This section is an empty social history section. DoD
--- OUTSIDE RECORDS SUMMARY | 2024-08-21 09:38 | XMS_ITS | Referral Summary ---
Author Organization [facility] [address] Address [address] [place] [address] Care Team Providers Care Bench Worker Name Role Phone Marquita Rodríguez MD Primary [...] 06/10/2017 Palpitations 06/10/2017 PSVT (paroxysmal supraventricular tachycardia) Social History Tobacco Use Types Packs/Day Years [...] on file Legal Sex Female 2:00 AM CORNCOB PIPES ASSEMBLER Gender Identity Not on file Sexual Orientation Not on file Last Filed Vital Signs Vital Sign Reading Time Taken Comments Blood Pressure 96/70 06/10/2017 9:14 AM CORNCOB PIPES ASSEMBLER Pulse 90 07/05/2017 11:49 AM CORNCOB PIPES ASSEMBLER Temperature 36.4 C (97.5 F) 07/03/2020 8:16 AM CORNCOB PIPES ASSEMBLER Respiratory Rate - - Oxygen Saturation 95% 07/05/2017 11: 49 AM CORNCOB PIPES ASSEMBLER Inhaled Oxygen Concentration - - Weight 83.9 kg (184 lb 14.4 oz) 018 11:49 AM CORNCOB PIPES ASSEMBLER Height 168.9 cm (5' 6.5 ) 07/05/2017 11 :49 AM CORNCOB PIPES ASSEMBLER Body Mass Index 29.4 07/05/2017 11:49 AM CORNCOB PIPES ASSEMBLER Plan of Treatment Not on file Insurance [facility] Care Teams Bench Worker Relationship Specialty Start Date End Date Marquita Rodríguez MD [address] [facility] [address] [place] [address] PCP - General 01/18/14
[2024-08-21 10:52] LABS: Folic Acid 15.4 ng/mL (2.76->20)
[2024-08-25 03:49] LABS: Methylmalonic Acid 137 nmol/L (55-335)
== END 2024-08-21 08:56 | disposition home or self-care (01) ==
LOC: ANHLAB 08:58
PROVIDERS: PCP Family Medicine; Visit Provider Psychiatry & Neurology Neurology
DX: F33.2 Major depressive disorder, recurrent severe without psychotic features (principal); E55.9 Vitamin D deficiency, unspecified
CPT/HCPCS: 36415; 82607; 82652; 82746; 83921

== ENCOUNTER 2024-08-29 12:11 | Outpatient (CLI) | payer OTHER, SELFPAY ==
--- NOTE | ~2024-08-29 | MR_ITS ---
EXAMINATION: MR brain/brain stem wo/w con DATE: 08/29/2024 13:18 INDICATION: Multiple sclerosis. Headache. Dizziness. TECHNIQUE: Magnetic resonance imaging (MRI) of the brain and brainstem was performed without and with 15 mL ProHance intravenous contrast. COMPARISON: Head CT 07/20/2024 FINDINGS: There are 3 foci of increased T2-weighted signal intensity in the cerebral white matter, wh ich is normal for the patient's age. There is no intracranial hemorrhage, acute infarction, or abnorm al intracranial mass lesion. The ventricles are normal in size. The paranasal sinuses are clear. The orbits are normal. The mastoid air cells are normal. IMPRESSION: 1. Normal brain. Reviewed, dictated and finalized at location A. ET MASTER IMPRESSION: 1. Normal brain.
== END 2024-08-29 12:12 | disposition home or self-care (01) ==
LOC: MICIMG 12:14
PROVIDERS: PCP Family Medicine; Visit Provider Psychiatry & Neurology Neurology
DX: G35 Multiple sclerosis (principal); F33.2 Major depressive disorder, recurrent severe without psychotic features
CPT/HCPCS: 70553; A9579

== ENCOUNTER 2024-09-12 09:35 | Outpatient (CLI) | payer OTHER, SELFPAY ==
[2024-09-12 10:03] LABS: Basophils Absolute Auto 0.1 K/mm3 (0.0-0.1); Basophils Percent Auto 0.9 % (0.2-1.2); Eosinophils Absolute Auto 0.2 K/mm3 (0-0.3); Eosinophils Percent Auto 2.4 % (0-4.4); Hematocrit 44.1 % (37.0-47.0); Hemoglobin 14.2 g/dL (12.0-15.0); Immature Granulocyte Absolute 0.03 K/mm3 (0.00-0.031); Immature Granulocyte Percent A 0.5 % (0-0.5); Lymphocytes Absolute Auto 2.42 K/mm3 (0.9-3.2); Lymphocytes Percent Auto 36.9 % (18.3-44.2); Mean Corpuscular HGB Conc 32.2 g/dl (32-36); Mean Corpuscular Hemoglobin 30.7 pg (26-34); Mean Corpuscular Volume 95.2 fl (80-100); Mean Platelet Volume 9.5 fl (7.4-10.4); Monocytes Absolute Auto 0.7 K/mm3 (0.1-0.6); Monocytes Percent Auto 11.1 % (2.6-8.5); Neutrophils Absolute Auto 3.2 K/mm3 (1.3-6.7); Neutrophils Percent Auto 48.2 % (45.5-73.1); Platelet Count Result 270 k/mm3 (150-375); Red Blood Count 4.63 M/mm3 (4.2-5.4); Red Cell Distribution Width 12.9 % (11.5-14.5); White Blood Count 6.6 K/mm3 (4.5-10.0)
[2024-09-12 10:19] LABS: Alanine Aminotransferase 27 U/L (6-35); Albumin Level 4.5 g/dL (3.5-5.1); Alkaline Phosphatase 74 U/L (38-126); Anion Gap 7 mmol/L (4-12); Aspartate Amino Transferase 30 U/L (14-36); Bilirubin,Total 0.6 mg/dL (0.2-1.3); Blood Urea Nitrogen 8 mg/dL (7-17); Calcium 9.7 mg/dL (8.4-10.2); Carbon Dioxide 30 mmol/L (22-30); Chloride 103 mmol/L (98-107); Estimated Glomerular Filt Rate > 60; Glucose 98 mg/dL (65-110); Potassium 3.9 mmol/L (3.4-5.0); Sodium 140 mmol/L (137-145)
[2024-09-12 10:25] LABS: Hemoglobin A1C 5.8 % (<5.7)
--- OUTSIDE RECORDS SUMMARY | 2024-09-12 10:42 | XMS_ITS | Referral Summary ---
Author Organization [facility] [address] Address [address] [place] [address] Care Team Providers Care Dip Dyer Name Role Phone Serina Cook Primary Care Provide r Encounters Date Type Department Care Team Description 09/10/2024 10:15 AM CDT Office Visit [facility] Department of Psychiatry [address] [place] [phone] Magdalena Dougherty NP Unspecified neurocognitive disorder (Primary Dx); Moderate episode of recurrent major depressive disorder (HCC) 09/07/2024 9:00 AM CDT Clinical Support [facility] Neuro Psychology [address] [address] Dawna Lucas, PhD Severe episode of recurrent major depressive disorder, without psychotic features (HCC) 08/30/2024 Telephone [facility] Psychiatry [address] [place], [place] [phone] Maria Luisa Jain CMA 08/27/2024 10:15 AM ADMINISTRATIVE LAW JUDGE Office Visit [facility] Department of Psychiatry [address] [address] Magdalena Dougherty NP Unspecified neurocognitive disorder (Primary Dx); Depression, unspecified depression type from Last 3 Months Allergies Active Allergy Reactions Criticality Noted Date Comments Penicillins Other (See comments) Reaction: Unknown, , , Reaction: Unknown, Medications venlafaxine (EFFEXOR) 75 mg tablet Take 75 mg by mouth daily. 7 Active carvedilol (COREG) 25 mg tablet Take 0.5 tablets (12.5 mg total) by mouth 2 (two) times a day with meals Active memantine (NAMENDA) 5 mg tabletIndicatio ns:Moderate to Severe Alzheimer's Type Dementia Take 1 tablet (5 mg total) by mouth daily Active atomoxetine (STRATTERA) 100 mg capsule Take 1 capsule (100 mg total) by mouth daily Active buPROPion (WELLBUTRIN) 75 mg tablet Take 1 tablet (75 mg total) by mouth 2 (two) times a day Active cholecalciferol (VITAMIN D-3) 50,000 unit capsuleIndicati ons:Vitamin D Deficiency (High Dose Therapy) Take 1 capsule (50,000 Units total) by mouth once a week. 4 capsule 3 7 08/28/19 25 Discontinu ed(Patient Reported) Active Problems Problem Noted Date Diagnosed Date Unspecified neurocognitive disorder 09/11/2024 Depression 08/27/2024 History of prior ablation treatment 06/10/2017 Palpitations 06/10/2017 PSVT (paroxysmal supraventricular tachycardia) Social History Tobacco Use Types Packs/Day Years Used Date Smoking Tobacco: Former Cigarettes Q uit: 06/27/1989 Smokeless Tobacco: Never Tobacco Cessation:Counseling Given: Not Answered Comments:She cannot recall when she quit smoking or how much she smoked Alcohol Use Standard Drinks/Week Comments Yes 0 (1 standard drink = 0.6 oz pur e alcohol) AUDIT-C Answer Date Recorded Q1: How often do you have a drink containing alcohol? Never 08/27/2024 Q2: How many drinks containi ng alcohol do you have on a typical day when you are drinking? Patient does not drink Q3: How often do you have si x or more drinks on one occasion? Never 08/27/2024 Comments Unknown Sex and Gender Information Value Date Recorded Sex Assigned at Not on file Legal Sex Female 2:00 AM ADMINISTRATIVE LAW JUDGE Gender Identity Not on file Sexual Orientation Not on file Last Filed Vital Signs Vital Sign Reading Time Taken Comments Blood Pressure 130/97 09/10/2024 10:04 AM CDT Pulse 81 09/10/2024 10:04 AM CDT Temperature 36.4 C (97.5 F) 07/03/2020 8:16 AM ADMINISTRATIVE LAW JUDGE Respiratory Rate - - Oxygen Saturation 95% 07/05/2017 11: 49 AM ADMINISTRATIVE LAW JUDGE Inhaled Oxygen Concentration - - Weight 83.4 kg (183 lb 12.8 oz) 025 10:04 AM CDT Height 167.6 cm (5' 6 ) 08/27/2024 10:2 2 AM ADMINISTRATIVE LAW JUDGE Body Mass Index 29.67 08/27/2024 10:22 AM ADMINISTRATIVE LAW JUDGE Plan of Treatment Not on file Insurance [facility] Care Teams Dip Dyer Relationship Specialty Start Date End Date Serina Cook PA [address] [facility] [address] [place] [address] PCP - General Physician Ingredient Mixer 08/24/24
--- OUTSIDE RECORDS SUMMARY | 2024-09-12 10:42 | XMS_ITS | Clinical Summary ---
Author Organization [facility] [address] Address [address] [place] [address] Care Team Providers Care Food Bagging Machine Operator Name Role Phone Serina Cook Primary Care Provide r Allergies Active Allergy Reactions Criticality Noted Date [...] 06/10/2017 Palpitations 06/10/2017 PSVT (paroxysmal supraventricular tachycardia) Encounters Date Type Department Care Team Description 09/10/2024 10:15 AM CDT Office Visit [facility] Department of Psychiatry [address] [facility] [address] [place] [phone] Magdalena Dougherty, BLESSING Unspecified neurocognitive disorder (Primary Dx); Moderate episode of recurrent major depressive disorder (HCC) 09/07/2024 9:00 AM CDT Clinical Support [facility] Neuro Psychology [address] [facility] [address] [place] [address] Dawna Lucas, PhD Severe episode of recurrent major depressive disorder, without psychotic features (HCC) 08/30/2024 Telephone [facility] Psychiatry [address] [place] [phone] Maria Luisa Jain CMA 08/27/2024 10:15 AM SILK SCREEN PRINTING RACKER Office Visit [facility] Department of Psychiatry [address] [facility] [address] [place] [address] Magdalena Dougherty NP Unspecified neurocognitive disorder (Primary Dx); Depression, unspecified depression type from Last 3 Months Surgical History Surgery Date Site/Laterality Comments OTHER SURGICAL HISTORY 2003 AVRT ablation OTHER SURGICAL HISTORY R atrial ablation- 09/17/03 OTHER SURGICAL HISTORY ablation isolation of R pulm veins- 09/28/03 OTHER SURGICAL HISTORY hysterectomy with right oophorectomy Medical History Medical History Date Comments Hx Other Medical Cardiomyopathy- resolved (tachy induced) Hx Other Medical AVRT- s/p ablat ion Hx Other Medical hx tobacco use PSVT (paroxysmal supraventri cular tachycardia) Cardiomyopathy (HCC) Social History Tobacco Use Types [...] on file Legal Sex Female 2:00 AM SILK SCREEN PRINTING RACKER Gender Identity Not on file Sexual Orientation Not on file Obstetrics History Last Filed Vital Signs Vital Sign Reading Time Taken Comments Blood Pressure 130/97 09/10/2024 10:04 AM CDT Pulse 81 09/10/2024 10:04 AM CDT Temperature 36.4 C (97.5 F) 07/03/2020 8:16 AM SILK SCREEN PRINTING RACKER Respiratory Rate - - Oxygen Saturation 95% 07/05/2017 11: 49 AM SILK SCREEN PRINTING RACKER Inhaled Oxygen Concentration - - Weight 83.4 kg (183 lb 12.8 oz) 025 10:04 AM CDT Height 167.6 cm (5' 6 ) 08/27/2024 10:2 2 AM SILK SCREEN PRINTING RACKER Body Mass Index 29.67 08/27/2024 10:22 AM SILK SCREEN PRINTING RACKER Plan of Treatment Health Maintenance Due Date Last Done Comments Breast Cancer Screening-Mammogram 1970 Cervical Cancer Screening 1970 Colon Cancer Screening-Colonoscopy 1970 Depression Screening 1970 Hepatitis C Screening 1970 DTaP/Tdap/Td Vaccine (1 - Tdap) 1981 Hepatitis B Screening 01/10/1988 Regular Well Visit/Exam 18-64 01/10/1988 Zoster Vaccine (1 of 2) 01/10/2020 Influenza Vaccine (#1) 2024 0, 04/26/2013 Pneumococcal vaccine <65 Aged Out No longer eligible based on patient's age to complete this topic Insurance [facility] H[facility]/PPO Address: [address] [address] [place] [address] R [facility] H[facility]/PPO Address: [address] [place] [id number] Care Teams Food Bagging Machine Operator Relationship Specialty Start Date End Date Serina Cook PA [address] [facility] [address] [place], [place] [phone] PCP - General Physician Baker Bench 08/24/24
--- OUTSIDE RECORDS SUMMARY | 2024-09-12 10:42 | XMS_ITS | Continuity of Care Document ---
Author Name [facility] Organization [facility] Care Team Providers Care Resolution Specialist Name Role Phone [facility] Unavailable Unavailable Encounters Combined list of: 1) Encounters from Department of Veterans Affairs facilities going backup to the last 18 months, not all VA inpatient encounters are included; 2) Encounters from the Department of Defense facilities going backup to 280 months. Location Location Details Encounter Type Encounter Number Reason For Visit Attending Provider ADM Date DC Date Status Disposition Source [facility] Outpatient Encounter [id number] 11/28 [facility]
--- OUTSIDE RECORDS SUMMARY | 2024-09-12 10:42 | XMS_ITS | Encounter Summary ---
Author Organization [facility] Address [address] [place] [address] Phone Care Team Providers Care Lead Android Developer Name Role Phone Serina Cook Primary Care Provide r Reason for Visit * Reason Comments Memory Loss MDD (Major Depressive Disorder) Encounter Details Date Type Department Care Team (Late st Contact Info) Description 09/10/2024 10:15 AM CDT Office Visit [facility] Department of Psychiatry [address] [facility] [address] [place] [address] Magdalena Roe NP [phone] [facility] [address] [place] [address] Unspecified neurocognitive disorder (Primary Dx); Moderate episode of recurrent major depressive disorder (HCC) Social History Tobacco Use Types Packs/Day [...] on file Legal Sex Female 2:00 AM EMBEDDED SOFTWARE MANAGER Gender Identity Not on file Sexual Orientation Not on file documented as of this encounter Last Filed Vital Signs Vital Sign Reading Time Taken Comments Blood Pressure 130/97 09/10/2024 10:04 AM CDT Pulse 81 09/10/2024 10:04 AM CDT Temperature - - Respiratory Rate - - Oxygen Saturation - - Inhaled Oxygen Concentration - - Weight 83.4 kg (183 lb 12.8 oz) 025 10:04 AM CDT Height - - Body Mass Index 29.67 08/27/2024 10:22 AM EMBEDDED SOFTWARE MANAGER documented in this encounter Miscellaneous Notes * Addendum Note - Magdalena Roe NP - 09/10/2024 10:15 AM CDTAddended by: MAGDALENA ROE on: 09/11/2024 02:34 PM Modules accepted: Orders documented in this encounter Plan of Treatment Scheduled Orders Name Type Priority Associated Diagnoses Orde r Schedule CBC with auto differential Lab Routine Unspecified neurocognitive disorder Expected: 09/18/2024 (Approximate), Expires: 09/11/2025 Comprehensive metabolic panel Lab Routine Unspecified neurocognitive disorder Expected: 09/18/2024 (Approximate), Expires: 09/11/2025 Thyroid Function [place] Lab Routine Unspecified neurocognitive disorder Expected: 09/14/2024, Expires: 09/11/2025 Drugs of Abuse Screen, Urine without Confirmation Lab Routine Unspecified neurocognitive disorder Expected: 09/14/2024, Expires: 09/11/2025 Urinalysis reflex to microscopic and culture Urine Microbiology Routine Unspecified neurocognitive disorder Expected: 09/14/2024, Expires: 09/11/2025 documented as of this encounter Visit Diagnoses Diagnosis Unspecified neurocognitive disorder- Primary Moderate episode of recurrent major depressive disorder (HCC) documented in this encounter Historical Medications * This list may reflect changes made after this encounter. buPROPion (WELLBUTRIN) 75 mg tablet Take 1 tablet (75 mg total) by mouth 2 (two) times a day atomoxetine (STRATTERA) 100 mg capsule Take 1 capsule (100 mg total) by mouth daily memantine (NAMENDA) 5 mg tabletIndications :Moderate to Severe Alzheimer's Type Dementia Take 1 tablet (5 mg total) by mouth daily added in this encounter Care Teams Lead Android Developer Relationship Specialty Start Date End Date Serina Cook PA [address] [facility] [address] [place] [phone] PCP - General Physician Police Crime Scene Technician 08/24/24 documented as of this encounter
== END 2024-09-12 09:36 | disposition home or self-care (01) ==
LOC: ANHLAB 09:37
PROVIDERS: PCP Family Medicine; Visit Provider Student in an Organized Health Care Education/Training Program
DX: R35.89 Other polyuria (principal); R63.1 Polydipsia; R73.01 Impaired fasting glucose; R74.01 Elevation of levels of liver transaminase levels; R41.3 Other amnesia
CPT/HCPCS: 36415; 80053; 83036; 84443; 85025

== ENCOUNTER 2024-10-26 09:12 | Emergency (ER) | payer OTHER, SELFPAY ==
[2024-10-26 09:16] VITALS: BP 150/108; PULSE 91; RESP 16; TEMP 36.9; O2SAT 99
[2024-10-26 09:41] LABS: BEDSIDEPREGUCG Negative (Negative)
[2024-10-26 09:48] LABS: Basophils Absolute Auto 0.1 K/mm3 (0.0-0.1); Basophils Percent Auto 1.1 % (0.2-1.2); Eosinophils Absolute Auto 0.1 K/mm3 (0-0.3); Hematocrit 44.8 % (37.0-47.0); Hemoglobin 14.5 g/dL (12.0-15.0); Immature Granulocyte Absolute 0.02 K/mm3 (0.00-0.031); Immature Granulocyte Percent A 0.3 % (0-0.5); Lymphocytes Absolute Auto 2.55 K/mm3 (0.9-3.2); Lymphocytes Percent Auto 36.4 % (18.3-44.2); Mean Corpuscular HGB Conc 32.4 g/dl (32-36); Mean Corpuscular Hemoglobin 30.9 pg (26-34); Mean Corpuscular Volume 95.5 fl (80-100); Mean Platelet Volume 9.5 fl (7.4-10.4); Monocytes Absolute Auto 0.7 K/mm3 (0.1-0.6); Monocytes Percent Auto 10.1 % (2.6-8.5); Neutrophils Absolute Auto 3.5 K/mm3 (1.3-6.7); Neutrophils Percent Auto 50.1 % (45.5-73.1); Platelet Count Result 259 k/mm3 (150-375); Red Blood Count 4.69 M/mm3 (4.2-5.4); Red Cell Distribution Width 13.1 % (11.5-14.5)
[2024-10-26 10:00] LABS: Add Urine Microscopic? NO; Appearance Urine Clear (Clear); Bilirubin Urine Negative (Negative); Blood Urine Negative (Negative); Color Urine Yellow (Yellow); Glucose Urine UA Negative (Negative); Ketones Urine Trace mg/dL (Negative); Leukocyte Esterase Ur Negative LEU/UL (Negative); Nitrate Urine Negative (Negative); Protein Urine Negative (Negative); Specific Grav Ur 1.011 (1.001-1.035)
[2024-10-26 10:07] LABS: Alanine Aminotransferase 47 U/L (6-35); Albumin Level 4.5 g/dL (3.5-5.1); Alkaline Phosphatase 100 U/L (38-126); Anion Gap 12 mmol/L (4-12); Aspartate Amino Transferase 41 U/L (14-36); Bilirubin,Total 0.7 mg/dL (0.2-1.3); Blood Urea Nitrogen 7 mg/dL (7-17); Calcium 9.5 mg/dL (8.4-10.2); Carbon Dioxide 25 mmol/L (22-30); Chloride 101 mmol/L (98-107); Estimated CRCL calculation 65 ml/min; Estimated Glomerular Filt Rate > 60; Glucose 105 mg/dL (65-110); Potassium 3.6 mmol/L (3.4-5.0); Sodium 138 mmol/L (137-145)
[2024-10-26 10:12] LABS: Ethanol < 10 mg/dL (<10)
[2024-10-26 10:26] LABS: Influenza A QL RT-PCR Negative (Negative); Influenza B QL RT-PCR Negative (Negative); RSV RNA, RT-PCR Negative (Negative); SARS-CoV-2 RNA PCR Negative (Negative)
[2024-10-26 10:30] LABS: Amphetamine Screen Urine Negative (Negative); Barbiturate Screen Urine Negative (Negative); Benzodiazepines Screen Urine Negative (Negative); Cannabinoid Screen Urine Negative (Negative); Cocaine Screen Urine Negative (Negative); Methadone Screen Urine Negative (Negative); Opiate Screen Urine Negative (Negative); Phencyclidine Screen Urine Negative (Negative)
--- NOTE | 2024-10-26 12:00 | ED_ITS ---
HPI - Psych General Chief Complaint: Psychiatric Symptoms Stated Complaint: SI History of Present Illness HPI Narrative: Patient is a 54-year-old female who presents to the ER with suicidal ideation. She reports she has lost her in February 2024. Patient reports since that time she has been worked for memory loss issues and has a neurologist. She reports she has had chronic suicidal thoughts since her passed, but last night she developed a plan. Patient reports she was planning on going to the drug store and buying multiple prescriptions. She had also considered lighting her house on fire. Patient reports she settled on the plan to sit in her garage with her car on and take multiple medications at the same time. It is unclear as to why patient did not follow through with her plan last night, but she presents to the ER with her late 's mother and neighbor, who are very concerned about her mental health. Patient reports she no longer feels purpose in living. She reports she has seen a psychiatrist in the past, but has never gone through the emergency department for psych evaluation. Patient reports she has been prescribed Effexor but takes it intermittently. She denies any physical pain at the time of examination, headaches, recent fevers, back pain, or abdominal pain. Patient reports she continues to have intermittent memory loss so neurology has prescribed her multiple medications to help relieve her symptoms. Related Data Home Medications ?Medication ?Instructions ?Recorded ?Confirmed ?Last Taken ?Type atomoxetine 40 mg capsule 40 mg PO DAILY 05/04/24 10/17/24 05/15/24 History bupropion HCl 75 mg tablet 75 mg PO DAILY 05/04/24 10/17/24 05/15/24 History venlafaxine 75 mg capsule,extended 75 mg PO DAILY 05/04/24 10/17/24 05/15/24 History release 24 hr Allergies Allergy/AdvReac Type Severity Reaction Status Date / Time Penicillins Allergy Unknown rash Verified 10/26/24 09:25 Review of Systems 2 Review of Systems: All systems reviewed & are unremarkable except as noted in HPI and below PMFSH Past Medical History Medical History Memory loss Stress incontinence s/p mid urethral sling History of paroxysmal supraventricular tachycardia Breast mass, right Fatigue Vitamin D insufficiency Major depressive disorder, recurrent, moderate Supraventricular tachycardia Surgical History Surgical History Status post creation of urethral sling by suprapubic approach History of cardiac radiofrequency ablation History of left oophorectomy History of hysterectomy Family History Family History Father Depression Mother Depression Family history of osteoarthritis Social History Social History Social History: Years smoked: 1 Smoking status: Former smoker Tobacco type: cigarettes Second hand tobacco smoke exposure: No Smoking end date: 06/27/90 Alcohol intake: current Alcohol use details: rarely Substance use: never Substance use type: does not use Do You Feel Safe in your Home?: Yes Lack of Transportation: No Lack of Food: Never True Current Housing: I Have Housing Concerned About Future Housing: No Difficulty Paying Gas/Electric Bills: No Difficulty Paying for Meds: No Currently Unemployed: No Education: Don't Know Difficulty w/ Childcare or Family Care: No Living arrangements: with family Occupation/Education: occupation Gender identity (if verbalized by the patient): Female Sexual Orientation (if Verbalized by the Patient): Straight or Heterosexual Spiritual care concerns: No Exam 2 Narrative: GENERAL: Well appearing, well-nourished, non-toxic, in no acute distress. HEAD: Normocephalic, atraumatic. NECK: Supple. No adenopathy, no masses. RESPIRATORY: Airway patent, respirations nonlabored. Clear to auscultation bilaterally, no rales, rhonchi, wheezing. CARDIOVASCULAR: Regular rate and rhythm without murmurs, rubs, or gallops. Peripheral pulses 2+ and equal bilaterally. ABDOMINAL: Soft, nontender, nondistended, no hepatosplenomegaly. Normoactive BS. MUSCULOSKELETAL: Moves all extremities. Strength/ROM intact without gross deformities. SKIN: Warm, dry, normal color. No rashes. NEURO: A&O X3. Speech clear. Cranial nerves II-XII intact. No ataxic movements. PSYCHIATRIC: Tearful and flat affect. Normal interaction. Course Vital Signs Vital signs: Vital Signs Temperature 98.4 F 10/26/24 09:16 Pulse Rate 91 10/26/24 09:16 Respiratory Rate 16 10/26/24 09:16 Blood Pressure 150/108 H 10/26/24 09:16 Pulse Oximetry 99 10/26/24 09:16 Oxygen Delivery Room Air 10/26/24 09:16 Temperature 97.8 F 10/26/24 17:52 Pulse Rate 84 10/26/24 17:52 Respiratory Rate 18 10/26/24 17:52 Blood Pressure 137/90 10/26/24 17:52 Pulse Oximetry 98 10/26/24 17:52 Oxygen Delivery Room Air 10/26/24 09:16 MDM - Psych MDM Narrative Medical decision making narrative: Patient is a 54-year-old female who presents to the ER with suicidal ideation. She reports she has lost her in February 2024. Patient reports since that time she has been worked for memory loss issues and has a neurologist. She reports she has had chronic suicidal thoughts since her passed, but last night she developed a plan. Patient reports she was planning on going to the drug store and buying multiple prescriptions. She had also considered lighting her house on fire. Patient reports she settled on the plan to sit in her garage with her car on and take multiple medications at the same time. It is unclear as to why patient did not follow through with her plan last night, but she presents to the ER with her late 's mother and neighbor, who are very concerned about her mental health. Patient reports she no longer feels purpose in living. She reports she has seen a psychiatrist in the past, but has never gone through the emergency department for psych evaluation. Patient reports she has been prescribed Effexor but takes it intermittently. She denies any physical pain at the time of examination, headaches, recent fevers, back pain, or abdominal pain. Patient reports she continues to have intermittent memory loss so neurology has prescribed her multiple medications to help relieve her symptoms. Labs Ordered: CBC, CMP, TSH, UDS, UA, ethanol Imaging Ordered: None necessary (pt has had multiple CT head scans and head MRIs d/t her chronic memory loss) Medications Ordered: None necessary Results: Patient's lab work was unremarkable for any acute concerning values. Diagnosis: Suicidal ideation, depression Consults: mental health intake Patient Education/Shared MDM: 1200- Pt is medically cleared for mental health intake. Mental health intake assessed pt and advises pt should be admitted for further mental health evaluation and care. Pt verbalizes understanding and is in agreement with plan. She will have a regular diet ordered. Pt was accepted to [facility]. Vital signs were stable at time of discharge. Pt continues to be A&Ox4. All questions answered prior to discharge. Differential Diagnosis Differential diagnosis: Likely acute psychosis, suicidal ideation, bipolar disorder, depression and acute anxiety Lab Data Attestation: I reviewed the patient's lab results. 10/26/24 09:36 10/26/24 09:36 Labs: Lab Results 10/26/24 10/26/24 10/26/24 Range/Units 09:36 09:37 09:38 WBC 7.0 (4.5-10.0) K/mm3 RBC 4.69 (4.2-5.4) M/mm3 Hgb 14.5 (12.0-15.0) g/dL Hct 44.8 (37.0-47.0) % MCV 95.5 (80-100) fl MCH 30.9 (26-34) pg MCHC 32.4 (32-36) g/dl RDW 13.1 (11.5-14.5) % Plt Count 259 (150-375) k/mm3 MPV 9.5 (7.4-10.4) fl Immature Gran % (Auto) 0.3 (0-0.5) % Neut % (Auto) 50.1 (45.5-73.1) % Lymph % (Auto) 36.4 (18.3-44.2) % [place] % (Auto) 10.1 H (2.6-8.5) % Eos % (Auto) 2.0 (0-4.4) % Baso % (Auto) 1.1 (0.2-1.2) % Lymph # (Auto) 2.55 (0.9-3.2) K/mm3 [place] # (Auto) 0.7 H (0.1-0.6) K/mm3 Eos # (Auto) 0.1 (0-0.3) K/mm3 Baso # (Auto) 0.1 (0.0-0.1) K/mm3 Abs Immat Gran (auto) 0.02 (0.00-0.031) K/mm3 Absolute Neuts (auto) 3.5 (1.3-6.7) K/mm3 Absolute Nucleated RBC 0.000 (0.0-0.012) K/mm3 Nucleated RBC % 0.0 (0.0-0.2) % Sodium 138 (137-145) mmol/L Potassium 3.6 (3.4-5.0) mmol/L Chloride 101 (98-107) mmol/L Carbon Dioxide 25 (22-30) mmol/L Anion Gap 12 (4-12) mmol/L BUN 7 (7-17) mg/dL Creatinine 0.93 (0.7-1.0) mg/dL Estim Creat Clear Calc 65 ml/min Estimated GFR > 60 (59 - ) Glucose 105 (65-110) mg/dL Calcium 9.5 (8.4-10.2) mg/dL Total Bilirubin 0.7 (0.2-1.3) mg/dL AST 41 H (14-36) U/L ALT 47 H (6-35) U/L Alkaline Phosphatase 100 (38-126) U/L Total Protein 7.0 (6.3-8.2) g/dL Albumin 4.5 (3.5-5.1) g/dL TSH (Reflex) 1.710 (0.465-4.68) uIU/mL Urine Color Yellow (Yellow) Urine Appearance Clear (Clear) Urine pH 6.0 (5.0-9.0) Ur Specific [place] 1.011 (1.001-1.035) Urine Protein Negative (Negative) mg/dL Urine Glucose (UA) Negative (Negative) mg/dL Urine Ketones Trace H (Negative) mg/dL Ur Blood (Man) Negative (Negative) Urine Nitrate Negative (Negative) Urine Bilirubin Negative (Negative) Urine Urobilinogen 1.0 (<2.0) mg/dL Leukocyte Esterase Rfl Negative (Negative) UZMA/UL POC Urine HCG, Qual Negative (Negative) Urine Opiates Screen Negative (Negative) Urine Methadone Screen Negative (Negative) Ur Barbiturates Screen Negative (Negative) Ur Phencyclidine Scrn Negative (Negative) Ur Amphetamine Screen Negative (Negative) U Benzodiazepines Scrn Negative (Negative) Urine Cocaine Screen Negative (Negative) U Cannabinoids Screen Negative (Negative) Ethyl Alcohol < 10 (<10) mg/dL Influenza A (RT-PCR) Negative (Negative) Influenza B (RT-PCR) Negative (Negative) RSV (RT-PCR) Negative (Negative) SARS-CoV-2 RNA (RT-PCR) Negative (Negative) Discharge Plan Discharge Clinical Impression: Depression with suicidal ideation Patient Disposition: Psychiatric Hosp Condition: Stable Patient Language: Italian Prescriptions: No Action fluoxetine 20 mg capsule 20 mg PO QPM Qty: 30 1RF fluoxetine 40 mg capsule 40 mg PO QAM Qty: 30 1RF memantine [Namenda] 5 mg tablet 5 mg PO BID Qty: 60 2RF venlafaxine 75 mg capsule,extended release 24hr 75 mg PO DAILY bupropion HCl 75 mg Tablet 75 mg PO DAILY atomoxetine 40 mg Capsule 40 mg PO DAILY buspirone 10 mg tablet 10 mg PO TID Qty: 90 0RF carvedilol 12.5 mg tablet 12.5 mg PO Q12H Qty: 60 4RF Rx Instructions: must administer with a meal/food Follow-up/Referrals: Patricio Mays MD [Primary Care Provider] -
[2024-10-26 12:27] VITALS: BP 137/93; PULSE 80; RESP 18; TEMP 36.8; O2SAT 100
[2024-10-26 15:30] VITALS: BP 136/95; PULSE 76; RESP 18; TEMP 36.9; O2SAT 100
--- NOTE | 2024-10-26 16:55 | PC.NURSE ---
called dietary to order tray for patient.
[2024-10-26 17:52] VITALS: BP 137/90; PULSE 84; RESP 18; TEMP 36.6; O2SAT 98
--- OUTSIDE RECORDS SUMMARY | 2024-10-27 11:30 | XMS_ITS | Continuity of Care Document ---
Author Name [facility] Organization [facility] Care Team Providers Care Interventional Pain Physician Name Role Phone [facility] Unavailable Unavailable Allergies, Adverse Reactions, Alerts Combined [...] of: 1) Encounters from [facility] facilities going backup to the last 18 months, not all DC inpatient encounters are included; 2) Encounters from the [facility] facilities going backup to 280 months. Location Location Details Encounter Type Encounter Number Reason For Visit Attending Provider ADM Date DC Date Status Disposition Source [facility] Outpatient Encounter [id number] 11/28 [facility] Procedures Combined list of: 1) Procedures from [facility] facilities going back up to thelast 18 months, not all DC non-surgical procedures are included; 2) All procedures from the [facility] facilities. Procedure Procedure Type Code Date Perfomer Comments Sourc e EKG (SCALP) 12/30/1992 [facility] EVACUATION OF OTHER HEMATOMA OF VULVA OR VAGINA 12/30/1992 [facility] REPAIR OF OTHER CURRENT OBSTETRIC LACERATION 12/30/1992 [facility] SCREENING [place] SMEAR ; OBTAINING, PREPARING AND CONVEYANCE OF CERVICAL OR VAGINAL SMEAR TO LABORATORY 03/06/2004 [facility] DETERMINATION OF VENOUS PRESSURE 10/21/2003 [facility] SPECIAL REPORTS SUCH INSURANCE FORMS, MORE THAN THE INFORMATION CONVEYED IN THE USUAL MEDICAL COMMUNICATIONS OR STANDARD REPORTING FORM 08/16/2003 [facility]D URINE TEST, BY VISUAL COLOR COMPARISON METHODS 08/13/2003 [facility] SCREENING [place] [employer]ME[employer] ; OBTAINING, PREPARING AND CONVEYANCE OF CERVICAL OR VAGINAL SMEAR TO LABORATORY 12/25/2002 DoD NONINVASIVE EAR OR PULSE OXIMETRY FOR OXYGEN SATURATION; SINGLE DETERMINATION 09/09/2002 DoD NONINVASIVE EAR OR PULSE OXIMETRY FOR OXYGEN SATURATION; SINGLE DETERMINATION 07/07/2002 [facility]D SPECIAL REPORTS SUCH INSURANCE FORMS, MORE THAN THE INFORMATION CONVEYED IN THE USUAL MEDICAL COMMUNICATIONS OR STANDARD REPORTING FORM 12/26/2001 [facility] SCREENING [place] SME[employer] ; OBTAINING, PREPARING AND CONVEYANCE OF CERVICAL OR VAGINAL SMEAR TO LABORATORY 10/16/2001 [facility]D PSYCHIATRIC EVALUATION OF HOSPITAL RECORDS, OTHER PSYCHIATRIC REPORTS, PSYCHOMETRIC AND/OR PROJECTIVE TESTS, AND OTHER ACCUMULATED DATA FOR MEDICALDIAGNOSTIC PURPOSES 11/29/2000 [facility] PREPARATION OF REPORT OF PATIENT'S PSYCHIATRIC STATUS, HISTORY, TREATMENT, OR PROGRESS (OTHER THAN FOR LEGAL OR CONSULTATIVE PURPOSES) FOR OTHER INDIVIDUALS, AGENCIES, OR INSURANCE CARRIERS 11/28/2000 [facility]D INDIVIDUAL PSYCHOTHERAPY, INSIGHT ORIENTED, BEHAVIOR MODIFYING AND/OR SUPPORTIVE, IN AN OFFICE OR OUTPATIENT FACILITY, APPROXIMATELY 45 TO 50 MINUTES [id number] WITH THE PATIENT 10/04/2000 DoD COLPOSCOPY OF THE CERVIX INCLUDING UPPER/ADJACENT VAGINA; 10/03/2000 [facility] PSYCHIATRIC EVALUATION OF HOSPITAL RECORDS, OTHER PSYCHIATRIC REPORTS, PSYCHOMETRIC AND/OR PROJECTIVE TESTS, AND OTHER ACCUMULATED DATA FOR MEDICALDIAGNOSTIC PURPOSES 09/29/2000 [facility] DOPPLER ECHOCARDIOGRAPHY COLOR FLOW VELOCITY MAPPING (LIST SEPARATELY IN ADDITION TO CODES FOR ECHOCARDIOGRAPHY) 09/26/2000 [facility] ANALYSIS OF CLINICAL DATA STORED IN COMPUTERS (EG, ECGS, BLOOD PRESSURES, HEMATOLOGIC DATA) 09/23/2000 [facility] ELECTROCARDIOGRAM, ROUTINE ECG WITH AT LEAST 12 LEADS; TRACING ONLY, WITHOUT INTERPRETATION AND REPORT 09/22/2000 [facility]D INDIVIDUAL PSYCHOTHERAPY, INSIGHT ORIENTED, BEHAVIOR MODIFYING AND/OR SUPPORTIVE, IN AN OFFICE OR OUTPATIENT FACILITY, APPROXIMATELY 45 TO 50 MINUTES [id number] WITH THE PATIENT 09/22/2000 DoD FAMILY PSYCHOTHERAPY (CONJOINT PSYCHOTHERAPY) (WITH PATIENT PRESENT), 50 MINUTES 09/16/2000 DoD INDIVIDUAL PSYCHOTHERAPY, INSIGHT ORIENTED, BEHAVIOR MODIFYING AND/OR SUPPORTIVE, IN AN OFFICE OR OUTPATIENT FACILITY, APPROXIMATELY 45 TO 50 MINUTES [id number] WITH THE PATIENT 09/16/2000 DoD INDIVIDUAL PSYCHOTHERAPY, INSIGHT ORIENTED, BEHAVIOR MODIFYING AND/OR SUPPORTIVE, IN AN OFFICE OR OUTPATIENT FACILITY, APPROXIMATELY 45 TO 50 MINUTES [id number] WITH THE PATIENT 09/09/2000 DoD INDIVIDUAL PSYCHOTHERAPY, INSIGHT ORIENTED, BEHAVIOR MODIFYING AND/OR SUPPORTIVE, IN AN OFFICE OR OUTPATIENT FACILITY, APPROXIMATELY 45 TO 50 MINUTES [id number] WITH THE PATIENT 09/01/2000 DoD FAMILY PSYCHOTHERAPY (CONJOINT PSYCHOTHERAPY) (WITH PATIENT PRESENT), 50 MINUTES 08/30/2000 DoD INDIVIDUAL PSYCHOTHERAPY, INSIGHT ORIENTED, BEHAVIOR MODIFYING AND/OR SUPPORTIVE, IN AN OFFICE OR OUTPATIENT FACILITY, APPROXIMATELY 45 TO 50 MINUTES [id number] WITH THE PATIENT 08/24/2000 DoD PSYCHIATRIC DIAGNOSTIC [...]
--- OUTSIDE RECORDS SUMMARY | 2024-10-27 11:30 | XMS_ITS | Clinical Summary ---
Author Organization [facility] [address] Address [address] [place] [address] Care Team Providers Care Weighbridge Operator Name Role Phone Serina Cook Primary [...] mouth 2 (two) times a day Active Active Problems Problem Noted Date Diagnosed Date Unspecified neurocognitive disorder 09/11/2024 Depression 08/27/2024 History of prior ablation treatment 06/10/2017 Palpitations 06/10/2017 PSVT (paroxysmal supraventricular tachycardia) Encounters Date Type Department Care Team Description 09/14/2024 [place] [address] Maria Luisa Jain CMA 09/10/2024 10:15 AM CDT Office Visit [facility] Department of Psychiatry [address] [place] [address] Magdalena Dougherty NP Unspecified neurocognitive disorder (Primary Dx); Moderate episode of recurrent major depressive disorder (HCC) 09/07/2024 9:00 AM CDT Clinical Support [facility] Neuro Psychology [address] [place] [address] Dawna Lucas, PhD Severe episode of recurrent major depressive disorder, without psychotic features (HCC) 08/30/2024 Telephone [facility] Psychiatry [facility] [place] [address] Maria Luisa Jain CMA 08/27/2024 10:15 AM HEAVY EQUIPMENT DIESEL MECHANIC Office Visit [facility] Department of Psychiatry [address] [place] [phone] Magdalena Dougherty NP Unspecified neurocognitive disorder (Primary [...] on file Legal Sex Female 2:00 AM HEAVY EQUIPMENT DIESEL MECHANIC Gender Identity Not on file Sexual Orientation Not on file Obstetrics History Last Filed Vital Signs Vital Sign Reading Time Taken Comments Blood Pressure 130/97 09/10/2024 10:04 AM CDT Pulse 81 09/10/2024 10:04 AM CDT Temperature 36.4 C (97.5 F) 07/03/2020 8:16 AM HEAVY EQUIPMENT DIESEL MECHANIC Respiratory Rate - - Oxygen Saturation 95% 07/05/2017 11: 49 AM HEAVY EQUIPMENT DIESEL MECHANIC Inhaled Oxygen Concentration - - Weight 83.4 kg (183 lb 12.8 oz) 025 10:04 AM CDT Height 167.6 cm (5' 6 ) 08/27/2024 10:2 2 AM HEAVY EQUIPMENT DIESEL MECHANIC Body Mass Index 29.67 08/27/2024 10:22 AM HEAVY EQUIPMENT DIESEL MECHANIC Plan of Treatment Health Maintenance Due Date Last Done Comments Breast Cancer Screening-Mammogram 1970 Cervical Cancer Screening 1970 Colon Cancer Screening-Colonoscopy 1970 Depression Screening 1970 Hepatitis C Screening 1970 DTaP/Tdap/Td Vaccine (1 - Tdap) 1981 Hepatitis B Screening 01/10/1988 Regular Well Visit/Exam 18-64 01/10/1988 Zoster Vaccine (1 of 2) 01/10/2020 Influenza Vaccine (Season Ended) 2025 04/25/2020, 04/26/2013 Pneumococcal vaccine <65 Aged Out No longer eligible based on patient's age to complete this topic Insurance [facility] Care Teams Weighbridge Operator Relationship Specialty Start Date End Date Serina Cook PA [address] [facility] [address] [place], [place] [phone] PCP - General Physician In Tube Conversion Technician 08/24/24
--- OUTSIDE RECORDS SUMMARY | 2024-10-27 11:30 | XMS_ITS | Referral Summary ---
Author Organization [facility] [address] Address [address] [place] [address] Care Team Providers Care Playground Attendant Name Role Phone Serina Cook Primary Care Provide r Encounters Date Type Department Care Team Description 09/14/2024 Telephone [facility] Psychiatry [address] [place] [address] Maria Luisa Jain CMA 09/10/2024 10:15 AM CDT Office Visit [facility] Department of Psychiatry [address] [place] [phone] Magdalena Dougherty NP Unspecified neurocognitive disorder (Primary Dx); Moderate episode of recurrent major depressive disorder (HCC) 09/07/2024 9:00 AM CDT Clinical Support [facility] Neuro Psychology [address] [place] [phone] Dawna Lucas, PhD Severe episode of recurrent major depressive disorder, without psychotic features (HCC) 08/30/2024 Telephone [facility] Psychiatry [address] [place] [address] Maria Luisa Jain CMA 08/27/2024 10:15 AM MANAGER COMPLETIONS Office Visit [facility] Department of Psychiatry [address] [phone] Magdalena Dougherty NP Unspecified neurocognitive [...] on file Legal Sex Female 2:00 AM MANAGER COMPLETIONS Gender Identity Not on file Sexual Orientation Not on file Last Filed Vital Signs Vital Sign Reading Time Taken Comments Blood Pressure 130/97 09/10/2024 10:04 AM CDT Pulse 81 09/10/2024 10:04 AM CDT Temperature 36.4 C (97.5 F) 07/03/2020 8:16 AM MANAGER COMPLETIONS Respiratory Rate - - Oxygen Saturation 95% 07/05/2017 11: 49 AM MANAGER COMPLETIONS Inhaled Oxygen Concentration - - Weight 83.4 kg (183 lb 12.8 oz) 025 10:04 AM CDT Height 167.6 cm (5' 6 ) 08/27/2024 10:2 2 AM MANAGER COMPLETIONS Body Mass Index 29.67 08/27/2024 10:22 AM MANAGER COMPLETIONS Plan of Treatment Not on file Insurance [facility]PP[facility] Address: [address] [place] [address] [facility]PPO Address: [address] [address] [place] [address] Care Teams Playground Attendant Relationship Specialty Start Date End Date Serina Cook PA [address] [facility] [address] [place] [address] PCP - General Physician Deputy Chief Magistrate 08/24/24
== END 2024-10-26 18:00 ==
LOC: ANHED 09:25
PROVIDERS: Emergency Medicine; Emergency Provider Registered Nurse; PCP Family Medicine
DX: R45.851 Suicidal ideations (principal); F33.9 Major depressive disorder, recurrent, unspecified; Z11.52 Encounter for screening for COVID-19; E55.9 Vitamin D deficiency, unspecified; Z87.891 Personal history of nicotine dependence; Z90.710 Acquired absence of both cervix and uterus; Z90.721 Acquired absence of ovaries, unilateral; Z79.899 Other long term (current) drug therapy
CPT/HCPCS: 36415; 80053; 80307; 81003; 81025; 82077; 84443; 85025; 87637; 99285

== ENCOUNTER 2024-11-22 08:34 | Outpatient (CLI) | payer OTHER, SELFPAY ==
--- OUTSIDE RECORDS SUMMARY | 2024-11-22 08:43 | XMS_ITS | Encounter Summary ---
Author Name [facility] Organization [facility] [place] Address [address] [place] [id number] Selected Encounter This section includes the information on record at [place] for the Encounter. Date/Time Encounter Type Encounter Description Reason Pro vider Source November 21, 2024 03:50 PM Outpatient Encounter ADMIN PAT ACTIVTIES (MASNONCT) IHE Encounter Template Text not used by [facility] Encounter Notes: All associated encounter notes This section contains the clinical notes associated to the Encounter. Date/Time Encounter Note(s) Provider Source November 21, 2024 03:50 PM ADMINISTRATIVE NOT E: LOCAL TITLE: CCC: SCHEDULING ADMINISTRATION STANDARD TITLE: ADMINISTRATIVE NOTE DATE OF NOTE: NOVEMBER 21, 2024@15:50:43 ENTRY DATE: NOVEMBER 21, 2024@15:50:43 AUTHOR: PAVITHRA DAVALOS EXP COSIGNER: URGENCY: STATUS: COMPLETED Caller Verification Caller/Recipient Relation to Patient: Self Caller Name: AYO RAMOS Scheduling Cannot Complete Scheduling Action Reason: Restricted / Unavailable Clinic Requested Service(s): Primary Care Scheduling Note Reason: Cannot Complete Appointment Request Open Request: None of the above Administrative Administrative Note Comments: THE STATES THAT SHE WOULD LIKE TO SCHED PACT APPT PLEASE. THANK YOU IMPORTANT: This note was created by [place] [facility] staff. Please do not alert the staff member by adding them as a signer for future communications. Alerts are not monitored by this user. /ann/ PAVITHRA DAVALOS Advanced bio medical technician Signed: 11/21/2024 15:50 Receipt Acknowledged By: 11/22/2024 07:31 /ann/ LOVELY MELGAR PCMM COORDINATOR PAVITHRA DAVALOS [facility]
--- OUTSIDE RECORDS SUMMARY | 2024-11-22 08:43 | XMS_ITS | Continuity of Care Document ---
Author Name [facility] Organization [facility] Care Team Providers Care Shipping And Receiving Assistant Name Role Phone [facility] Unavailable Unavailable Allergies, Adverse Reactions, Alerts Combined list of allergies from Department of [facility] facilities. It does not include entries that were removed or entered in error. Substance Category Reaction Severity Reaction type Status Date Reported Comments Source PENICILLIN G (PENICILLIN G PROCAINE) Drug allergy (disorder) Unknown active 01/22/2008 [facility] [place] Encounters Combined list of: 1) Encounters from [facility] facilities going backup to the last 18 months, not all [place] inpatient encounters are included; 2) Encounters from the Department [facility] facilities going backup to 280 months. Location Location Details Encounter Type Encounter Number Reason For Visit Attending Provider ADM Date DC Date Status Disposition Source [facility] Outpatient Encounter [id number] 11/28 [facility] Outpatient Encounter [id number] 11/21 [facility] Outpatient Encounter [id number] 11/21 [facility] Procedures Combined list of: 1) Procedures from [facility] facilities going back up to thelast 18 months, not all [place] non-surgical procedures are included; 2) All procedures from the Department [facility] facilities. Procedure Procedure Type Code Date Perfomer Comments Sourc e EKG (SCALP) 12/30/1992 [facility] EVACUATION OF OTHER HEMATOMA OF VULVA OR VAGINA 12/30/1992 [facility] REPAIR OF OTHER CURRENT OBSTETRIC LACERATION 12/30/1992 [facility] SCREENING PAPANICOLAOU SMEAR ; OBTAINING, PREPARING AND CONVEYANCE OF CERVICAL OR VAGINAL SMEAR TO LABORATORY 03/06/2004 [facility] DETERMINATION OF VENOUS PRESSURE 10/21/2003 [facility] SPECIAL REPORTS SUCH INSURANCE FORMS, MORE THAN THE INFORMATION CONVEYED IN THE USUAL MEDICAL COMMUNICATIONS OR STANDARD REPORTING FORM 08/16/2003 [facility] URINE TEST, BY VISUAL COLOR COMPARISON METHODS 08/13/2003 [facility] SCREENING PAPANICOLAOU SMEAR ; OBTAINING, PREPARING AND CONVEYANCE OF CERVICAL OR VAGINAL SMEAR TO LABORATORY 12/25/2002 [facility] NONINVASIVE EAR OR PULSE OXIMETRY FOR OXYGEN SATURATION; SINGLE DETERMINATION 09/09/2002 [facility] NONINVASIVE EAR OR PULSE OXIMETRY FOR OXYGEN SATURATION; SINGLE DETERMINATION 07/07/2002 [facility] SPECIAL REPORTS SUCH INSURANCE FORMS, MORE THAN THE INFORMATION CONVEYED IN THE USUAL MEDICAL COMMUNICATIONS OR STANDARD REPORTING FORM 12/26/2001 [facility] SCREENING PAPANICOLAOU SMEAR ; OBTAINING, PREPARING AND CONVEYANCE OF CERVICAL OR VAGINAL SMEAR TO LABORATORY 10/16/2001 [facility] PSYCHIATRIC EVALUATION OF HOSPITAL RECORDS, OTHER PSYCHIATRIC REPORTS, PSYCHOMETRIC AND/OR PROJECTIVE TESTS, AND OTHER ACCUMULATED DATA FOR MEDICALDIAGNOSTIC PURPOSES 11/29/2000 [facility] PREPARATION OF REPORT OF PATIENT'S PSYCHIATRIC STATUS, HISTORY, TREATMENT, OR PROGRESS (OTHER THAN FOR LEGAL OR CONSULTATIVE PURPOSES) FOR OTHER INDIVIDUALS, AGENCIES, OR INSURANCE CARRIERS 11/28/2000 [facility] INDIVIDUAL PSYCHOTHERAPY, INSIGHT ORIENTED, BEHAVIOR MODIFYING AND/OR SUPPORTIVE, IN AN OFFICE OR OUTPATIENT FACILITY, APPROXIMATELY 45 TO 50 MINUTES [id number] WITH THE PATIENT 10/04/2000 [facility] COLPOSCOPY OF THE CERVIX INCLUDING UPPER/ADJACENT VAGINA; [...] TRACING ONLY, WITHOUT INTERPRETATION AND REPORT 09/22/2000 [facility] INDIVIDUAL PSYCHOTHERAPY, INSIGHT ORIENTED, BEHAVIOR MODIFYING AND/OR SUPPORTIVE, IN AN OFFICE OR OUTPATIENT FACILITY, APPROXIMATELY 45 TO 50 MINUTES [id number] WITH THE PATIENT 09/22/2000 [facility] FAMILY PSYCHOTHERAPY (CONJOINT PSYCHOTHERAPY) (WITH PATIENT PRESENT), 50 MINUTES 09/16/2000 [facility] INDIVIDUAL PSYCHOTHERAPY, INSIGHT ORIENTED, BEHAVIOR MODIFYING AND/OR SUPPORTIVE, IN AN OFFICE OR OUTPATIENT FACILITY, APPROXIMATELY 45 TO 50 MINUTES [id number] WITH THE PATIENT 09/16/2000 [facility] INDIVIDUAL PSYCHOTHERAPY, INSIGHT ORIENTED, BEHAVIOR MODIFYING AND/OR SUPPORTIVE, IN AN OFFICE OR OUTPATIENT FACILITY, APPROXIMATELY 45 TO 50 MINUTES [id number] WITH THE PATIENT 09/09/2000 [facility] INDIVIDUAL PSYCHOTHERAPY, INSIGHT ORIENTED, BEHAVIOR MODIFYING AND/OR SUPPORTIVE, IN AN OFFICE OR OUTPATIENT FACILITY, APPROXIMATELY 45 TO 50 MINUTES [id number] WITH THE PATIENT 09/01/2000 [facility] FAMILY PSYCHOTHERAPY (CONJOINT PSYCHOTHERAPY) (WITH PATIENT PRESENT), 50 MINUTES 08/30/2000 [facility] INDIVIDUAL PSYCHOTHERAPY, INSIGHT ORIENTED, BEHAVIOR MODIFYING AND/OR SUPPORTIVE, IN AN OFFICE OR OUTPATIENT FACILITY, APPROXIMATELY 45 TO 50 MINUTES [id number] WITH THE PATIENT 08/24/2000 [facility] PSYCHIATRIC DIAGNOSTIC [...]
--- OUTSIDE RECORDS SUMMARY | 2024-11-22 08:43 | XMS_ITS | Encounter Summary ---
Author Name [facility] [place] [facility] [place] [facility] [place] Address [address] [place] [id number] Selected Encounter This section includes the information on record at [place] for the Encounter. Date/Time Encounter Type Encounter Description Reason Pro vider Source November 21, 2024 01:48 PM Outpatient Encounter ADMIN PAT ACTIVTIES (MASNONCT) IHE Encounter Template Text not used by [facility] Encounter Notes: All associated encounter notes This section contains the clinical notes associated to the Encounter. Date/Time Encounter Note(s) Provider Source November 21, 2024 01:48 PM ADMINISTRATIVE NOT E: LOCAL TITLE: CCC: SCHEDULING ADMINISTRATION STANDARD TITLE: ADMINISTRATIVE NOTE DATE OF NOTE: NOVEMBER 21, 2024@13:48:33 ENTRY DATE: NOVEMBER 21, 2024@13:48:34 AUTHOR: SAM HOYT EXP COSIGNER: URGENCY: STATUS: COMPLETED Caller Verification Caller/Recipient Relation to Patient: Self Caller Name: AYO RAMOS Administrative Administrative Note Reason: Other Administrative Note Comments: spoke with who is requesting a return call back to be assigned to pact team IMPORTANT: This note was created by [facility] Clinical Contact Center staff. Please do not alert the staff member by adding them as a signer for future communications. Alerts are not monitored by this user. /ann/ SAM HOYT ADVANCE MEDICAL SUPPORT ASSITANT Signed: 11/21/2024 13:48 Receipt Acknowledged By: 11/22/2024 07:26 /ann/ LOVELY MELGAR PCMM COORDINATOR * AWAITING SIGNATURE * LOUISE MERLOS * AWAITING SIGNATURE * PHAN RAMIREZ [facility]
--- OUTSIDE RECORDS SUMMARY | 2024-11-22 08:43 | XMS_ITS | Referral Summary ---
Author Organization [facility] [address] Address [address] [place] [address] Care Team Providers Care Social Media Marketing Specialist Name Role Phone Serina Cook Primary Care Provide r Encounters Date Type Department Care Team Description 11/20/2024 10:30 AM CDT Office Visit [facility] Department of Psychiatry [address] [phone] Bhavesh Barillas MD Unspecified neurocognitive disorder (Primary Dx); Depression, unspecified depression type 09/14/2024 Telephone [facility] Psychiatry [facility] [place] [address] Maria Luisa Jain CMA 09/10/2024 10:15 AM CDT Office Visit [facility] Department of Psychiatry [address] [phone] Magdalena Dougherty NP Unspecified neurocognitive disorder (Primary Dx); Moderate episode of recurrent major depressive disorder (HCC) 09/07/2024 9:00 AM CDT Clinical Support [facility] Neuro Psychology [address] [facility] [address] [place] [phone] Dawna Lucas, PhD Severe episode of recurrent major depressive disorder, without psychotic features (HCC) 08/30/2024 Telephone [facility] Psychiatry [facility] [place] [address] Maria Luisa Jain CMA 08/27/2024 10:15 AM CORRECTIONAL MANAGER Office Visit [facility] Department of Psychiatry [address] [place] [phone] Magdalena Dougherty NP Unspecified neurocognitive disorder (Primary Dx); Depression, unspecified depression type from Last 3 Months Allergies Active Allergy Reactions Criticality Noted Date Comments Penicillins Other (See comments) Reaction: Unknown, , , Reaction: Unknown, Medications carvedilol (COREG) 25 mg tablet Take 0.5 tablets (12.5 mg total) by mouth 2 (two) times a day with meals Active memantine (NAMENDA) 5 mg tabletIndicati ons:Moderate to Severe Alzheimer's Type Dementia Take 1 tablet (5 mg total) by mouth daily Active donepeziL (ARICEPT) 10 mg tablet Take 1 tablet (10 mg total) by mouth daily 10/31/19 25 Active ARIPiprazole (ABILIFY) 2 mg tablet Take 1 tablet (2 mg total) by mouth daily 10/28/19 25 Active venlafaxine 225 mg tablet extended release 24hr 24 hr tablet Take 1 tablet (225 mg total) by mouth daily 10/28/19 25 Active venlafaxine (EFFEXOR) 75 mg tablet Take 75 mg by mouth daily. 05/11/20 17 025 Discontinued atomoxetine (STRATTERA) 100 mg capsule Take 1 capsule (100 mg total) by mouth daily 025 Discontinued(Al ternate therapy) buPROPion (WELLBUTRIN) 75 mg tablet Take 1 tablet (75 mg total) by mouth 2 (two) times a day 025 Discontinued Active Problems Problem Noted Date Diagnosed Date [...] on file Legal Sex Female 2:00 AM CORRECTIONAL MANAGER Gender Identity Not on file Sexual Orientation Not on file Last Filed Vital Signs Vital Sign Reading Time Taken Comments Blood Pressure 130/97 09/10/2024 10:04 AM CDT Pulse 81 09/10/2024 10:04 AM CDT Temperature 36.4 C (97.5 F) 07/03/2020 8:16 AM CORRECTIONAL MANAGER Respiratory Rate - - Oxygen Saturation 95% 07/05/2017 11: 49 AM CORRECTIONAL MANAGER Inhaled Oxygen Concentration - - Weight 83.4 kg (183 lb 12.8 oz) 025 10:04 AM CDT Height 167.6 cm (5' 6) 08/27/2024 10:2 2 AM CORRECTIONAL MANAGER Body Mass Index 29.67 08/27/2024 10:22 AM CORRECTIONAL MANAGER Plan of Treatment Not on file Insurance [facility] Care Teams Social Media Marketing Specialist Relationship Specialty Start Date End Date Serina Cook PA [address] [facility] [address] [place] [address] PCP - General Physician Transplant Worker 08/24/24
--- OUTSIDE RECORDS SUMMARY | 2024-11-22 08:43 | XMS_ITS | Clinical Summary ---
Author Organization [facility] Address [address] [place] [address] Care Team Providers Care Press Hand Supervisor Name Role Phone Unavailable Primary Care Provider Unavailabl e Source Comments [facility],non-owned Affiliates and Associated Physician Practices is amultiple site organization consisting of ambulatory clinics and hospital sitesin [place], [place], [place] and [place]. This disclosure is being madepursuant to the Care Everywhere program and may not contain all information available regarding this patient. Last updated 18.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 Gender Identity Not on file Sexual Orientation Not on file Plan of Treatment Health Maintenance Due Date Last Done Comments COLOGUARD (AGES 45-75) - COL ON CA SCREENING 1970 COLON MONITORING 1970 COLONOSCOPY - COLON CA SCREENING 1970 CT COLONOGRAPHY - COLON CA SCREENING 1970 Colorectal Cancer Screening 1970 FIT - COLON CA SCREENING 1970 FLEX SIG - COLON CA SCREENING 1970 LIPID TESTING 1970 MAMMOGRAM 1970 PAP SMEAR 1970 HIV SCREENING 1985 HEPATITIS C SCREENING 01/05/1988 DTAP/TDAP/TD VACCINES (1 - Tdap) 1989 HEPATITIS B VACCINE (1 of 3 - 19+ 3-dose series) 1989 PNEUMOCOCCAL VACCINE 50+ (1 of 1 - PCV) 01/10/2020 ZOSTER VACCINE (1 of 2) 01/10/2020 COVID-19 VACCINE (1 - 2023-2 5 season) 2024 DEPRESSION SCREENING 06/27/2024 INFLUENZA VACCINE (Season Ended) 2025 HIB VACCINE Aged Out No longer eligi ble based on patient's age to complete this topic HPV VACCINE Aged Out No longer eligi ble based on patient's age to complete this topic MENINGOCOCCAL (Group B) VACC INE SHARED DECISION-MAKING Aged Out No longer eligibl e based on patient's age to complete this topic MENINGOCOCCAL GROUPS A/C/Y/W VACCINE Aged Out No longer eligible b ased on patient's age to complete this topic
--- OUTSIDE RECORDS SUMMARY | 2024-11-22 08:43 | XMS_ITS | Clinical Summary ---
Author Organization [facility] [address] Address [address] [place] [address] Care Team Providers Care Drive In Waiter/Waitress Name Role Phone Serina Cook Primary Care [...] Description 11/20/2024 10:30 AM CDT Office Visit [facility] Department of Psychiatry [address] [phone] Bhavesh Barillas MD Unspecified neurocognitive disorder (Primary Dx); Depression, unspecified depression type 09/14/[address] [facility] Psychiatry [facility] [place] [address] Maria Luisa Jain CMA 09/10/2024 10:15 AM CDT Office Visit [facility] Department of Psychiatry [address] [place] [phone] Magdalena Dougherty NP Unspecified neurocognitive disorder (Primary Dx); Moderate episode of recurrent major depressive disorder (HCC) 09/07/2024 9:00 AM CDT Clinical Support [facility] Neuro Psychology [address] [phone] Dawna Lucas, PhD Severe episode of recurrent major depressive disorder, without psychotic features (HCC) 08/30/[address] [facility] Psychiatry [facility] [place] [address] Maria Luisa Jain CMA 08/27/2024 10:15 AM LANDSCAPE NURSERYMAN Office Visit [facility] Department of Psychiatry [address] [place] [phone] Magdalena Dougherty NP Unspecified neurocognitive disorder [...] on file Legal Sex Female 2:00 AM LANDSCAPE NURSERYMAN Gender Identity Not on file Sexual Orientation Not on file Obstetrics History Last Filed Vital Signs Vital Sign Reading Time Taken Comments Blood Pressure 130/97 09/10/2024 10:04 AM CDT Pulse 81 09/10/2024 10:04 AM CDT Temperature 36.4 C (97.5 F) 07/03/2020 8:16 AM LANDSCAPE NURSERYMAN Respiratory Rate - - Oxygen Saturation 95% 07/05/2017 11: 49 AM LANDSCAPE NURSERYMAN Inhaled Oxygen Concentration - - Weight 83.4 kg (183 lb 12.8 oz) 025 10:04 AM CDT Height 167.6 cm (5' 6) 08/27/2024 10:2 2 AM LANDSCAPE NURSERYMAN Body Mass Index 29.67 08/27/2024 10:22 AM LANDSCAPE NURSERYMAN Plan of Treatment Health Maintenance Due Date [...] patient's age to complete this topic Insurance [facility] Care Teams Drive In Waiter/Waitress Relationship Specialty Start Date End Date Serina Cook PA [address] [facility] 120 [place] [address] PCP - General Physician Photonics Engineering Technician 08/24/24
[2024-11-22 09:08] LABS: Add Urine Microscopic? NO; Appearance Urine Clear (Clear); Bilirubin Urine Negative (Negative); Blood Urine Negative (Negative); Color Urine Yellow (Yellow); Glucose Urine UA Negative (Negative); Ketones Urine Negative (Negative); Leukocyte Esterase Ur Negative LEU/UL (Negative); Nitrate Urine Negative (Negative); Protein Urine Negative (Negative); Specific Grav Ur 1.012 (1.001-1.035); pH Urine 7.5 (5.0-9.0)
[2024-11-22 09:22] LABS: Hematocrit 46.1 % (37.0-47.0); Hemoglobin 14.9 g/dL (12.0-15.0); Mean Corpuscular HGB Conc 32.3 g/dl (32-36); Mean Corpuscular Hemoglobin 30.9 pg (26-34); Mean Corpuscular Volume 95.6 fl (80-100); Mean Platelet Volume 9.8 fl (7.4-10.4); Platelet Count Result 279 k/mm3 (150-375); Red Blood Count 4.82 M/mm3 (4.2-5.4); White Blood Count 8.4 K/mm3 (4.5-10.0)
[2024-11-22 10:11] LABS: Alanine Aminotransferase 48 U/L (6-35); Albumin Level 4.6 g/dL (3.5-5.1); Alkaline Phosphatase 93 U/L (38-126); Anion Gap 10 mmol/L (4-12); Aspartate Amino Transferase 40 U/L (14-36); Bilirubin,Total 0.6 mg/dL (0.2-1.3); Blood Urea Nitrogen 8 mg/dL (7-17); Calcium 9.9 mg/dL (8.4-10.2); Carbon Dioxide 29 mmol/L (22-30); Chloride 102 mmol/L (98-107); Cholesterol 279 mg/dL (0-200); Estimated Glomerular Filt Rate > 60; Glucose 108 mg/dL (65-110); HDL Direct 54 mg/dL; Potassium 4.1 mmol/L (3.4-5.0); Sodium 141 mmol/L (137-145); Triglycerides 278 mg/dL (<150)
[2024-11-22 10:22] LABS: LDL Cholesterol Direct 141 mg/dL
[2024-11-22 10:56] LABS: Vitamin D 25 Hydroxy 23.7 ng/mL
[2024-11-22 11:21] LABS: Folic Acid 9.9 ng/mL (2.76->20)
[2024-11-23 19:13] LABS: Amphetamines NEGATIVE ng/mL (<500); Barbiturates NEGATIVE ng/mL (<300); Benzodiazepines NEGATIVE ng/mL (<100); Cocaine Metabolite NEGATIVE ng/mL (<150); Marijuana Metabolite NEGATIVE ng/mL (<20); Methadone Metabolite NEGATIVE ng/mL (<100); Opiates NEGATIVE ng/mL (<100); Oxidant NEGATIVE mcg/mL (<200); PCP NEGATIVE ng/mL (<25); pH 7.3 (4.5-9.0)
[2024-11-26 14:03] LABS: Vitamin B1. 11 nmol/L (8-30)
== END 2024-11-22 08:35 | disposition home or self-care (01) ==
PROVIDERS: PCP Family Medicine
DX: R41.9 Unspecified symptoms and signs involving cognitive functions and awareness (principal); F32.A Depression, unspecified
CPT/HCPCS: 36415; 80053; 80061; 80307; 81003; 82248; 82306; 82607; 82746; 84425; 84443; 85027

== ENCOUNTER 2024-12-11 09:14 | Outpatient (CLI) | payer OTHER, SELFPAY ==
--- OUTSIDE RECORDS SUMMARY | 2024-12-11 09:56 | XMS_ITS | Referral Summary ---
Author Organization [facility] [address] Address [address] [place] [address] Care Team Providers Care Realtime Reporter Name Role Phone Serina Cook Primary Care Provide r Encounters Date Type Department Care Team Description 11/20/2024 10:30 AM CDT Office Visit [facility] Department of Psychiatry [address] [place] [phone] Bhavesh Barillas MD Unspecified neurocognitive disorder (Primary Dx); Depression, unspecified depression type 09/14/2024 Telephone [facility] Psychiatry [address] [place] [address] Maria Luisa Jain CMA 09/10/2024 10:15 AM CDT Office Visit [facility] Department of Psychiatry [address] [place] [phone] Magdalena Dougherty NP Unspecified neurocognitive disorder (Primary Dx); Moderate episode of recurrent major depressive disorder (HCC) from Last 3 Months Allergies Active Allergy [...] on file Legal Sex Female 2:00 AM CURRICULUM DEVELOPMENT SPECIALIST Gender Identity Not on file Sexual Orientation Not on file Last Filed Vital Signs Vital Sign Reading Time Taken Comments Blood Pressure 130/97 09/10/2024 10:04 AM CDT Pulse 81 09/10/2024 10:04 AM CDT Temperature 36.4 C (97.5 F) 07/03/2020 8:16 AM CURRICULUM DEVELOPMENT SPECIALIST Respiratory Rate - - Oxygen Saturation 95% 07/05/2017 11: 49 AM CURRICULUM DEVELOPMENT SPECIALIST Inhaled Oxygen Concentration - - Weight 83.4 kg (183 lb 12.8 oz) 025 10:04 AM CDT Height 167.6 cm (5' 6) 08/27/2024 10:2 2 AM CURRICULUM DEVELOPMENT SPECIALIST Body Mass Index 29.67 08/27/2024 10:22 AM CURRICULUM DEVELOPMENT SPECIALIST Plan of Treatment Not on file Insurance [facility] Address: [place] [address] [facility] Address: [address] [place] [address] Care Teams Realtime Reporter Relationship Specialty Start Date End Date Serina Cook PA [address] [facility] [address] [place] [address] PCP - General Physician Trestleman 08/24/24
--- OUTSIDE RECORDS SUMMARY | 2024-12-11 09:56 | XMS_ITS | Clinical Summary ---
Author Organization [facility] [address] Address [address] [place] [address] Care Team Providers Care Regional Account Director Name Role Phone Serina Cook Primary Care [...] Description 11/20/2024 10:30 AM CDT Office Visit [facility] Department of Psychiatry [address] [facility] [address] [place] [phone] Bhavesh Barillas MD Unspecified neurocognitive disorder (Primary Dx); Depression, unspecified depression type 09/14/2024 Telephone [facility] Psychiatry [facility] [place] [address] Maria Luisa Jain CMA 09/10/2024 10:15 AM CDT Office Visit [facility] Department of Psychiatry [address] [facility] [address] [place] [phone] Magdalena Dougherty NP Unspecified neurocognitive disorder (Primary Dx); Moderate episode of recurrent major depressive disorder (HCC) from Last 3 Months Surgical History Surgery [...] on file Legal Sex Female 2:00 AM COMPOUNDING TECHNICIAN Gender Identity Not on file Sexual Orientation Not on file Obstetrics History Last Filed Vital Signs Vital Sign Reading Time Taken Comments Blood Pressure 130/97 09/10/2024 10:04 AM CDT Pulse 81 09/10/2024 10:04 AM CDT Temperature 36.4 C (97.5 F) 07/03/2020 8:16 AM COMPOUNDING TECHNICIAN Respiratory Rate - - Oxygen Saturation 95% 07/05/2017 11: 49 AM COMPOUNDING TECHNICIAN Inhaled Oxygen Concentration - - Weight 83.4 kg (183 lb 12.8 oz) 025 10:04 AM CDT Height 167.6 cm (5' 6) 08/27/2024 10:2 2 AM COMPOUNDING TECHNICIAN Body Mass Index 29.67 08/27/2024 10:22 AM COMPOUNDING TECHNICIAN Plan of Treatment Health Maintenance Due Date [...] patient's age to complete this topic Insurance [facility] Care Teams Regional Account Director Relationship Specialty Start Date End Date Serina Cook PA [address] [facility] [address] [place] [address] PCP - General Physician Director Of Automation 08/24/24
--- OUTSIDE RECORDS SUMMARY | 2024-12-11 09:56 | XMS_ITS | Clinical Summary ---
Author Organization [facility] Address [address] [place] [address] Care Team Providers Care Steward/Stewardess Tourist Class Name Role Phone Unavailable Primary Care Provider Unavailabl e Source Comments [facility],non-owned Affiliates and Associated Physician Practices is amultiple site organization consisting of ambulatory clinics and hospital sitesin [place], [place], [place] and [place]. This disclosure is being madepursuant to the Care Everywhere program and may not contain all information available regarding this patient. Last updated 18[facility] [employer] Social History Tobacco Use Types Packs/Day Years Used Date Smoking Tobacco: Never Assessed Comments Unknown Sex and Gender Information Value Date Recorded Sex Assigned at Not on file Legal Sex Female 1:20 PM PHYSICIAN EXECUTIVE Gender Identity Not on file Sexual Orientation [...]
[2024-12-14 05:23] LABS: Neurofilament Light Chain Plas 3.92 pg/mL (<4.05)
== END 2024-12-11 09:15 | disposition home or self-care (01) ==
LOC: ANHLAB 09:16
PROVIDERS: PCP Family Medicine; Visit Provider Psychiatry & Neurology Neurology
DX: F33.2 Major depressive disorder, recurrent severe without psychotic features (principal); R41.3 Other amnesia
CPT/HCPCS: 36415; 82234; 83884; 84393

== ENCOUNTER 2025-03-06 13:10 | Outpatient (CLI) | payer OTHER, SELFPAY ==
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
--- OUTSIDE RECORDS SUMMARY | 2025-03-06 13:52 | XMS_ITS | Patient Health Record ---
Author Organization [facility] As [place] Address [address] [place] [address] Care Team Providers Care Car Sweeper Name Role Phone Patricio Mays MD Primary Care Provider UnavailJose Saldaña Unavailable [phone] [place] Unavailable [phone] Luke Parry Unavailable [phone] Felipa Martinez Unavailable [phone] Allergies Allergen (clinical drug ingredient) Drug/Non Drug Allergy documented on EMR Reaction Allergy Type Onset Date Status Substance with penicillin structure and antibacterial mechanism of action (substance) Penicillins Unknown Drug Allergy 09/05/2023 Active Reason For Referral No Information Medications Medication SIG (Take, Route, Frequency, Duration) Notes Start Date End Date Status Lansoprazole 30 MG Capsule Delayed Release TAKE 1 CAPSULE BY MOUTH DAILY AT 4 PM FOR 30 DAYS Oral; Duration: 30 Days Active Memantine HCl 5 MG Tablet Oral Active Donepezil HCl 10 MG Tablet TAKE 1 TABLET BY MOUTH DAILY Oral Active ARIPiprazole 2 MG Tablet 1 tablet Oral O nce a day; Duration: 90 days Active Carvedilol 12.5 MG Tablet TAKE 1 TABLET BY MOUTH EVERY 12 HOURS Oral; Duration: 30 Days Active Venlafaxine HCl ER 225 MG Tablet Extended Release 24 Hour 1 tablet with food Oral Once a day; Duration: 90 days Active Social History Tobacco Use: Social [...] there any firearms in the house? No Social History Social Info Question Answer Notes Household: Marital Status: Number of Adults in household: 1 Number of Children in Household: 0 Level of Education: Finished College Household: Social Info Question Answer Notes Household Marital status: Marital status of the child's parents: Number of children in household: 0 patient has 2 adult children Drug/Alcohol: Social Info Question Answer Notes Drugs Have you used drugs other than those for medical reasons in the past 12 months? No AUDIT-C (Standard) Points 4 Interpretation Positive Did you have a drink contain ing alcohol in the past year? Yes How often did you have six or more drinks on one occasion in the past year? Less than monthly (1 point) How many drinks did you have on a typical day when you were drinking in the past year? 3 or 4 drinks (1 point) How often did you have a drink containing alcohol in the past year? Monthly or less (1 point) Tobacco Use: Social Info Question Answer Notes Tobacco Control (Standard) How long has it been since you last smoked? Greater than 10 years When did you start smoking? 1989 Tobacco use: Nonsmoker When did you stop smoking? 1991 Additional Details Category Social Info Options Details Migrated Social History Migrated Social History Alcohol Intake: Occasional 02/25/2023,Tobacco Years: Never smoker 02/16/2023 Drug/Alcohol: Do you drink alcohol? No Section Notes: Substance Use Hx: Alcohol: denies, used to drink 4 beers a day but stopped doing this about 10 years ago Nicotine: former smoker Caffeine: every other day will drink 2 cups of coffee Other Substances: denied. Huffed gas from age 14 to 17 and then did a few times when in the Substance Use Hx: Alcohol: denies, used to drink 4 beers a day but stopped doing this about 10 years ago Nicotine: former smoker Caffeine: every other day will drink 2 cups of coffee Other Substances: denied. Huffed gas from age 14 to 17 and then did a few times when in the Substance Use Hx: Alcohol: denies, used to drink 4 beers a day but stopped doing this about 10 years ago Nicotine: former smoker Caffeine: every other day will drink 2 cups of coffee Other Substances: denied. Huffed gas from age 14 to 17 and then did a few times when in the Substance Use Hx: Alcohol: denies, used to drink 4 beers a day but stopped doing this about 10 years ago Nicotine: former smoker Caffeine: every other day will drink 2 cups of coffee Other Substances: denied. Huffed gas from age 14 to 17 and then did a few times when in the Substance Use Hx: Alcohol: denies, used to drink 4 beers a day but stopped doing this about 10 years ago Nicotine: former smoker Caffeine: every other day will drink 2 cups of coffee Other Substances: denied. Huffed gas from age 14 to 17 and then did a few times when in the Substance Use Hx: Alcohol: denies, used to drink 4 beers a day but stopped doing this about 10 years ago Nicotine: former smoker Caffeine: every other day will drink 2 cups of coffee Other Substances: denied. Huffed gas from age 14 to 17 and then did a few times when in the Gasoline huffing: Huffed Gasoline In The Past Alcohol use: Heavy Alcohol User Substance Use Hx: Alcohol: denies, used to drink 4 beers a day but stopped doing this about 10 years ago Nicotine: former smoker Caffeine: every other day will drink 2 cups of coffee Other Substances: denied. Huffed gas from age 14 to 17 and then did a few times when in the Substance Use Hx: Alcohol: denies, used to drink 4 beers a day but stopped doing this about 10 years ago Nicotine: former smoker Caffeine: every other day will drink 2 cups of coffee Other Substances: denied. Huffed gas from age 14 to 17 and then did a few times when in the Gasoline huffing: Huffed Gasoline In The Past Alcohol use: Heavy Alcohol User Problems Problem Type SNOMED Code ICD Code Onset Dates Problem Status W/U Status Risk Notes Problem Alcohol abuse (35793544) Alcohol abuse, uncomplicated (F10.10) Active confirmed Problem Moderate recurrent major depression (46066163) Major depressive disorder, recurrent, moderate (F33.1) Active confirmed Problem Severe recurrent major depression without psychotic features (61782612) Major depressive disorder, recurrent severe without psychotic features (F33.2) Active confirmed Problem Generalized anxiety disorder (43910245) Generalized anxiety disorder (F41.1) Active confirmed Problem Feeling suicidal (419641825) Suicidal ideations (R45.851) Active confirmed Problem Screening for cardiovascular system disease (201208579) Encounter for screening for cardiovascular disorders (Z13.6) Active confirmed Problem Depression Screening (026223611) Encounter for screening for depression (Z13.31) Active confirmed Problem Severe recurrent major depression without psychotic features (98035937) Severe episode of recurrent major depressive disorder, without psychotic features (F33.2) Active confirmed Problem Mild recurrent major depression (74346184) MDD (major depressive disorder), recurrent episode, mild (F33.0) Active confirmed Problem Unable to concentrate (finding) (60442665) Difficulty concentrating (R41.840) Active confirmed Problem Mild recurrent major depression (62164962) Mild episode of recurrent major depressive disorder (F33.0) Active confirmed Problem Mild cognitive impairment (964393427) Mild cognitive impairment (G31.84) Active confirmed Problem Psychotic disorder (00919652) Unspecified psychosis (F29) Active confirmed Problem Paroxysmal supraventricular tachycardia (disorder) (52111655) PSVT (paroxysmal supraventricular tachycardia) (I47.10) 017 Active confirmed Problem Postprocedural states (663816052) History of prior ablation treatment (Z98.890) 017 Active confirmed Problem Neurocognitive disorder (365029694) Unspecified neurocognitive disorder (R41.9) 025 Active confirmed Vital Signs Heart Rate 91 /min 11/30/2024 Height-cm 168.91 cm 11/30/2024 Blood pressure diastolic 83 mm Hg 11/30/2024 Weight-kg 78.47 kg 11/30/2024 Height 66.50 in 11/30/2024 Blood pressure systolic 117 mm Hg 11/30/2024 Weight 173 lbs 11/30/2024 BMI 27.5 kg/m2 11/30/2024 Procedures Procedure Date Ordered Date Performed Result Body Sit e MCI Testing 11/21/2024 N/A SLUMS Testing 11/21/2024 N/A Encounters Encounter Location Date Provider Diagnosis [facility] [address] [facility] [address] [address] 09/21/2024 [facility] Mild cognitive impairment G31.84 ; MDD (major depressive disorder), recurrent episode, mild F33.0 ; Encounter for screening for depression Z13.31 ; History of prior ablation treatment Z98.890 ; PSVT (paroxysmal supraventricular tachycardia) I47.10 ; Encounter for screening for cardiovascular disorders Z13.6 and Non-compliance Z91.199 [employer] [address] [facility] [address] [place] [address] 10/05/2024 Luke Club Encounter for screen ing for depression Z13.31 ; Encounter for screening for cardiovascular disorders Z13.6 ; Mild cognitive impairment G31.84 ; MDD (major depressive disorder), recurrent episode, mild F33.0 and Difficulty concentrating R41.[address] [employer] [address] [facility] [address] [place] [address] 10/18/2024 Felipa Martinez Major depressive disorder, recurrent, moderate F33.1 ; Suicidal ideations R45.851 ; Unspecified psychosis F29 ; Mild cognitive impairment G31.84 ; Difficulty concentrating R41.840 ; Generalized anxiety disorder F41.1 ; Encounter for screening for depression Z13.31 and Encounter for screening for cardiovascular disorders Z13.6 [employer] [address] [place] [address] [address] [address] 10/26/2024 Luke Club Suicide ideation R45 .851 ; Major depressive disorder, recurrent severe without psychotic features F33.2 ; Generalized anxiety disorder F41.1 ; Mild cognitive impairment G31.84 ; Encounter for screening for cardiovascular disorders Z13.6 ; Encounter for screening for depression Z13.31 ; PSVT (paroxysmal supraventricular tachycardia) I47.10 and Difficulty concentrating R41.[address] [employer] [facility], Walk[facility] [address] [place] [address] [address] [address] 11/05/2024 Luke Club Mild episode of recurrent major depressive disorder F33.0 ; Generalized anxiety disorder F41.1 ; Mild cognitive impairment G31.84 ; Encounter for screening for depression Z13.31 and Encounter for screening for cardiovascular disorders Z13.[address] [employer] [address] [place] [address] [address] [facility] [address] [place] [address] 11/21/2024 Jose Zaldivar Major depressive disorder, recurrent severe without psychotic features F33.2 ; PSVT (paroxysmal supraventricular tachycardia) I47.10 ; Encounter for screening for cardiovascular disorders Z13.6 ; Encounter for screening for depression Z13.31 ; Mild cognitive impairment G31.84 ; Unspecified neurocognitive disorder R41.9 ; Alcohol abuse, uncomplicated F10.10 ; Toxic effect of petroleum products, accidental (unintentional), initial encounter T52.0X1A and Suicide ideation R45.851 [place] [address] [facility] [address] [address] 11/26/2024 Josedonald Zaldivar Mild cognitive impairment G31.[address] [address] 11/30/2024 Jose Kayley Major depressive disorder, recurrent severe without psychotic features F33.2 ; Alcohol abuse, uncomplicated F10.10 ; Toxic effect of petroleum products, accidental (unintentional), initial encounter T52.0X1A ; Encounter for screening for depression Z13.31 ; Mild cognitive impairment G31.84 and Encounter for screening for cardiovascular disorders Z13.[address] [address] 03/23/2024 [employer] [facility], [facility] [address] [place] [address] 10/25/2024 [employer] [address] [address] 12/06/2024 Jose Zaldivar [address] [address] 12/10/2024 Jose Zaldivar [address] [address] 12/11/2024 Jose Zaldivar Assessments Encounter Date Diagnosis (ICD Code) Assessment Notes Treatment Notes Treatment Clinical Notes Section Notes 09/21/2024 MDD (major depressive disorder), recurrent episode, mild (ICD-10 - F33.0) 09/21/2024 Mild cognitive impairment (ICD-10 - G31.84) 10/05/2024 Encounter for screening for depression (ICD-10 - Z13.31) 10/26/2024 Major depressive disorder, recurrent severe without psychotic features (ICD-10 - F33.2) 10/26/2024 Suicide ideation (ICD-10 - R45.851) 11/05/2024 Generalized anxiety disorder (ICD-10 - F41.1) 11/05/2024 Mild episode of recurrent major depressive disorder (ICD-10 - F33.0) refills not needed at this time. 11/21/2024 Major depressive disorder, recurrent severe without psychotic features (ICD-10 - F33.2) SUMMARYDate: 09/07/2024Reason: Neuropsychological evaluation for diagnostic clarification and treatment planning due to cognitive changes.Summary: Ayo Ramos, a 54-year-old woman, underwent a neuropsychological evaluation due to cognitive changes noted by her [id number] and exacerbated after her 's passing. She reported disorientation, concentration difficulties, word-finding issues, and forgetfulness. Her medical history includes major depressive disorder and paroxysmal supraventricular tachycardia. She has a history of high alcohol use and huffing gasoline. Testing revealed suspiciously low scores on performance validity measures, suggesting non-credible reporting of symptoms. The evaluation did not find evidence of significant neuropsychological dysfunction or structural changes on MRI. Recommendations include considering psychiatric causes and repeating the assessment when the patient is more comfortable.Result s:- Dot Counting Test: Below Expectation- Ina Symptom Validity Test: Within Normal Limits- Wide Range Achievement Test-5th Ed: Exceptionally Low Score- Philip Adult Intelligence Scale-4th Ed: Low Average Score- Dementia Rating Scale-2nd Ed: Exceptionally Low Score- Braeden Cognitive Assessment: Exceptionally Low ScoreFollow-up Instructions: Repeat neuropsychological assessment recommended; determinations regarding return to work and driving deferred to neurologist. 11/21/2024 PSVT (paroxysmal supraventricular tachycardia) (ICD-10 - I47.10) SUMMARYDate: 09/07/2024Reason: Neuropsychological evaluation for diagnostic clarification and treatment planning due to cognitive changes.Summary: Ayo Ramos, a 54-year-old woman, underwent a neuropsychological evaluation due to cognitive changes noted by her [id number] and exacerbated after her 's passing. She reported disorientation, concentration difficulties, word-finding issues, and forgetfulness. Her medical history includes major depressive disorder and paroxysmal supraventricular tachycardia. She has a history of high alcohol use and huffing gasoline. Testing revealed suspiciously low scores on performance validity measures, suggesting non-credible reporting of symptoms. The evaluation did not find evidence of significant neuropsychological dysfunction or structural changes on MRI. Recommendations include considering psychiatric causes and repeating the assessment when the patient is more comfortable.Result s:- Dot Counting Test: Below Expectation- [place] Symptom Validity Test: Within Normal Limits- Wide Range Achievement Test-5th Ed: Exceptionally Low Score- Philip Adult Intelligence Scale-4th Ed: Low Average Score- Dementia Rating Scale-2nd Ed: Exceptionally Low Score- Braeden Cognitive Assessment: Exceptionally Low ScoreFollow-up Instructions: Repeat neuropsychological assessment recommended; determinations regarding return to work and driving deferred to neurologist. 11/26/2024 Mild cognitive impairment (ICD-10 - G31.84) Interpretation of Cognitive Assessment Results Subject: Female, Age 54 Assessment Date: November 26, 2024 Assessment Tools: Creyos Cognitive Battery, SLUMS, IQCODE 1. Cognitive Screening Summary SLUMS Score: 13 This score falls in the range indicative of moderate cognitive impairment, based on standard thresholds for individuals with high school education or greater. IQCODE Score: 4.19 A score above 3.22 reflects significant subjective cognitive decline. This supports concern for progressive memory and executive functioning issues. 2. Cognitive Task Performance (Creyos) Below Average Domains Attention (Feature Match): Score 75 Suggests difficulty with sustained focus and detecting relevant details, likely affecting concentration in daily tasks. Episodic Memory (Paired Associates): Score 85 Indicates reduced ability to recall meaningful associations, such as names, conversations, or where items are placed. Response Inhibition (Double Trouble): Score 82 Reflects challenges filtering distractions or inhibiting incorrect responses, often manifesting as impulsive mistakes or difficulty ignoring irrelevant information. Visuospatial Working Memory (Number Ladder): Score 86 Impacts the ability to manage spatial information, which may affect navigation or tracking multiple steps. Average Domains Mental Rotation (Rotations): Score 104 Spatial visualization ability is preserved, supporting skills such as assembling objects or interpreting shapes. Verbal Short-Term Memory (Digit Span): Score 95 Indicates functional short-term memory for sequences like phone numbers or brief verbal instructions. 3. Clinical Interpretation The profile suggests multiple cognitive weaknesses, particularly in attention, episodic memory, inhibition, and working memory. These impairments, combined with the subjective report of decline and a SLUMS score in the moderate impairment range, are consistent with mild cognitive impairment that may be progressing toward major neurocognitive disorder. Functional dependence in instrumental tasks like shopping and food preparation reinforces this risk. While verbal short-term memory and spatial reasoning remain adequate, kim executive domains needed for independence show deterioration. Early intervention is necessary to maintain quality of life and slow decline. 4. Non-Pharmacologic Treatment Recommendations A. Cognitive Rehabilitation Memory aids: Use notebooks, calendars, and daily checklists to compensate for episodic memory loss. Spaced retrieval training: Repeated practice retrieving information over increasing intervals to improve recall. Errorless learning: Break learning into small parts with cues to minimize errors and build confidence. B. Environmental Structuring Simplify environment: Reduce clutter and maintain consistent placement of important items. Label items and locations: Use visual cues around the home for storage areas and appliances. Automate routines: Use timers, pill dispensers, and programmed lights to support daily tasks. C. Executive Function Support Activity sequencing: Use laminated visual guides or written steps for common routines like meal prep. Impulse regulation: Introduce brief pauses before acting on tasks, such as counting to three before speaking or choosing. D. Physical and Lifestyle Interventions Daily aerobic exercise: At least 30 minutes of walking or similar activity, three to five times per week. Brain-stimulating leisure: Puzzles, card games, or learning new simple hobbies to engage memory. Consistent sleep schedule: Promote 7 to 9 hours of sleep per night with a calm bedtime routine. Nutrition: Emphasize Mediterranean-style diet with whole grains, vegetables, olive oil, and fish. E. Social and Emotional Wellbeing Social connection: Encourage participation in community or support groups for cognitive wellness. Mood monitoring: Watch for signs of depression, which can further impact cognition and may be treatable with behavioral therapy. F. Safety Planning Monitor driving and medication management: Involve family or healthcare providers in oversight as needed. Home safety audit: Consider occupational therapy input for fall prevention and task simplification. 5. Monitoring and Follow-Up Re-evaluate cognitive and functional status every 6 months Coordinate care with primary care provider or neurology for diagnostic confirmation and ongoing support Involve family in care planning early to ensure structured support network This profile is consistent with early-stage cognitive decline, requiring coordinated behavioral, cognitive, and environmental interventions to support autonomy and delay progression. 11/30/2024 Alcohol abuse, uncomplicated (ICD-10 - F10.10) 11/30/2024 Major depressive disorder, recurrent severe without psychotic features (ICD-10 - F33.2) Patient occasionally forgets medication. Improved compliance recently. - Continue venlafaxine 225 mg daily. - Continue aripiprazole 2 mg daily. 10/18/2024 Major depressive disorder, recurrent, moderate (ICD-10 - F33.1) 10/18/2024 Suicidal ideations (ICD-10 - R45.851) 10/18/2024 Unspecified psychosis (ICD-10 - F29) 11/30/2024 Toxic effect of petroleum products, accidental (unintentional), initial encounter (ICD-10 - T52.0X1A) 11/05/2024 Mild cognitive impairment (ICD-10 - G31.84) refills not needed at this time. 11/21/2024 Encounter for screening for cardiovascular disorders (ICD-10 - Z13.6) SUMMARYDate: 09/07/2024Reason: Neuropsychological evaluation for diagnostic clarification and treatment planning due to cognitive changes.Summary: Ayo Ramos, a 54-year-old woman, underwent a neuropsychological evaluation due to cognitive changes noted by her [id number] and exacerbated after her 's passing. She reported disorientation, concentration difficulties, word-finding issues, and forgetfulness. Her medical history includes major depressive disorder and paroxysmal supraventricular tachycardia. She has a history of high alcohol use and huffing gasoline. Testing revealed suspiciously low scores on performance validity measures, suggesting non-credible reporting of symptoms. The evaluation did not find evidence of significant neuropsychological dysfunction or structural changes on MRI. Recommendations include considering psychiatric causes and repeating the assessment when the patient is more comfortable.Result s:- Dot Counting Test: Below Expectation- Ina Symptom Validity Test: Within Normal Limits- Wide Range Achievement Test-5th Ed: Exceptionally Low Score- Philip Adult Intelligence Scale-4th Ed: Low Average Score- Dementia Rating Scale-2nd Ed: Exceptionally Low Score- Braeden Cognitive Assessment: Exceptionally Low ScoreFollow-up Instructions: Repeat neuropsychological assessment recommended; determinations regarding return to work and driving deferred to neurologist. 10/26/2024 Generalized anxiety disorder (ICD-10 - F41.1) 10/05/2024 Encounter for screening for cardiovascular disorders (ICD-10 - Z13.6) 09/21/2024 Encounter for screening for depression (ICD-10 - Z13.31) 09/21/2024 History of prior ablation treatment (ICD-10 - Z98.890) 10/05/2024 Mild cognitive impairment (ICD-10 - G31.84) 10/26/2024 Mild cognitive impairment (ICD-10 - G31.84) 11/21/2024 Encounter for screening for depression (ICD-10 - Z13.31) SUMMARYDate: 09/07/2024Reason: Neuropsychological evaluation for diagnostic clarification and treatment planning due to cognitive changes.Summary: Ayo Ramos, a 54-year-old woman, underwent a neuropsychological evaluation due to cognitive changes noted by her [id number] and exacerbated after her 's passing. She reported disorientation, concentration difficulties, word-finding issues, and forgetfulness. Her medical history includes major depressive disorder and paroxysmal supraventricular tachycardia. She has a history of high alcohol use and huffing gasoline. Testing revealed suspiciously low scores on performance validity measures, suggesting non-credible reporting of symptoms. The evaluation did not find evidence of significant neuropsychological dysfunction or structural changes on MRI. Recommendations include considering psychiatric causes and repeating the assessment when the patient is more comfortable.Result s:- Dot Counting Test: Below Expectation- Ina Symptom Validity Test: Within Normal Limits- Wide Range Achievement Test-5th Ed: Exceptionally Low Score- Philpi Adult Intelligence Scale-4th Ed: Low Average Score- Dementia Rating Scale-2nd Ed: Exceptionally Low Score- [place]iota Cognitive Assessment: Exceptionally Low ScoreFollow-up Instructions: Repeat neuropsychological assessment recommended; determinations regarding return to work and driving deferred to neurologist. 11/30/2024 Encounter for screening for depression (ICD-10 - Z13.31) 10/18/2024 Mild cognitive impairment (ICD-10 - G31.84) 11/05/2024 Encounter for screening for depression (ICD-10 - Z13.31) 10/18/2024 Difficulty concentrating (ICD-10 - R41.840) 11/30/2024 Mild cognitive impairment (ICD-10 - G31.84) Interpretation of Cognitive Assessment Results Subject: Female, Age 54 Assessment Date: November 26, 2024 Assessment Tools: Creyos Cognitive Battery, SLUMS, IQCODE 1. Cognitive Screening Summary SLUMS Score: 13 This score falls in the range indicative of moderate cognitive impairment, based on standard thresholds for individuals with high school education or greater. IQCODE Score: 4.19 A score above 3.22 reflects significant subjective cognitive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 Patient reports improvement in depressive symptoms, stating she is doing pretty good and thinking good thoughts. She denies current depression or significant anxiety. Patient demonstrates improved functioning, reporting engagement in activities such as cooking. Plan: - Continue current medication regimen (see note) - Monitor for changes in mood or return of depressive symptoms - Encourage ongoing positive coping strategies - follow up with Dr. Zaldivar on 11/21/24 cognitive impairment - continue donepezil 10 mg HS - continue memantine 10 mg BID - continue cognitive exercises as discussed at prior visits (puzzles, word searches) The note is transcribed using speech recognition software. It is a reflection of a visit with the patient. It might have some inaccuracy, including medication names and transcribing errors, though efforts have been made to correct them. Plan Of Treatment Pending Test Test Name Order Date MCI Testing 11/21/2024 SLUMS Testing 11/21/2024 Insurance Providers Payer Name Payer Address Payer Phone Subscriber Number Group Number Insured Name Patient Relationship to Insured Coverage Start Date Coverage End Date [facility] [facility] [place] [address] [address] [place] [address] [id number] AYO RAMOS Self - patient is the insured Medical (General) History Medical History History ICD Code Problems: Generalized anxiety disorder Severe recurrent major depression withou t psychotic features cardiomyopathy abdominal aortic aneurysm: No undefined atrial fibrillation: No chronic fatigue syndrome: No essential tremor: No hyperlipidemia: No hypertension: yes Parkinson's disease: No restless leg syndrome: No stroke: No subdural hematoma: No type 1 diabetes mellitus: No type 2 diabetes mellitus: No vitamin B12 deficiency: No vitamin D deficiency: No SVT GERD Surgical History Surgery Date(Month/Year) Hysterectomy (14838) 05/01/2011 AVRT- s/p ablation- r atrial ablation hysterectomy w/ right oophorectomy Hospitalization History Reason Date(Month/Year) inpatient psychiatric 10/2024
--- OUTSIDE RECORDS SUMMARY | 2025-03-06 13:52 | XMS_ITS | Clinical Summary ---
Author Organization [facility] [place] [address] Address [address] [place] [address] Care Team Providers Care Log Handling Equipment Operator Name Role Phone Serina Cook Primary [...] tablet (10 mg total) by mouth daily 10/30/2024 Active ARIPiprazole (ABILIFY) 2 mg tablet Take 1 tablet (2 mg total) by mouth daily 10/27/2024 Active venlafaxine 225 mg tablet extended release 24hr 24 hr tablet Take 1 tablet (225 mg total) by mouth daily 10/27/2024 Active Active Problems Problem Noted Date Diagnosed Date Unspecified neurocognitive disorder 09/11/2024 Depression 08/27/2024 History of prior ablation treatment 06/10/2017 Palpitations 06/10/2017 PSVT (paroxysmal supraventricular tachycardia) Encounters Date Type Department Care Team Description 01/25/2025 1:13 PM CDT - 01/25/2025 11:59 PM CDT Hospital Encounter [facility] [address] [place] [phone] Abnormal mammogram Discharge Disposition: Discharge to home or self care 01/25/2025 1:11 PM CDT - 01/25/2025 11:59 PM CDT Hospital Encounter [facility] [address] [place] [address] Abnormal mammogram Discharge Disposition: Discharge to home or self care 01/14/2025 10:38 AM CDT - 01/14/2025 11:59 PM CDT Hospital Encounter [facility] [address] [place] [id number] Screening mammogram, encounter for Discharge Disposition: Discharge to home or self care from Last 3 Months Surgical History Surgery [...] use PSVT (paroxysmal supraventri cular tachycardia) Cardiomyopathy Social History Tobacco Use Types Packs/Day Years [...] drinks on one occasion? Never 08/27/2024 Comments No Sex and Gender Information Value Date Recorded Sex Assigned at Not on file Legal Sex Female 2:00 AM [employer] [facility]ER Gender Identity Not on file Sexual Orientation Not on file Obstetrics History Para Term AB IAB SAB Ectopic Multiple Livin g Live Births 2 2 Date Outcome GA Total Labor Labor/2nd/3rd Weight Sex Type Anes PTL Kate A1 A5 Name Clin Last Filed Vital Signs Vital Sign Reading Time Taken Comments Blood Pressure 130/97 09/10/2024 10:04 AM CDT Pulse 81 09/10/2024 10:04 AM CDT Temperature 36.4 C (97.5 F) 07/03/2020 8:16 AM [facility] Respiratory Rate - - Oxygen Saturation 95% 07/05/2017 11: 49 AM [facility] Inhaled Oxygen Concentration - - Weight 83.4 kg (183 lb 12.8 oz) 025 10:04 AM CDT Height 167.6 cm (5' 6) 08/27/2024 10:2 2 AM [facility] [employer] [facility] Body Mass Index 29.67 08/27/2024 10:22 AM [facility] Plan of Treatment Health Maintenance Due Date Last Done Comments Cervical Cancer Screening 1970 Colon Cancer Screening-Colonoscopy 1970 Depression Screening 1970 Hepatitis C Screening 1970 DTaP/Tdap/Td Vaccine (1 - Tdap) 1981 Hepatitis B Screening 01/10/1988 Regular Well Visit/Exam 18-64 01/10/1988 Zoster Vaccine (1 of 2) 01/10/2020 Influenza Vaccine (#1) 2025 0, 04/26/2013 Breast Cancer Screening-Mammogram 01/14/2026 01/14/2025 Pneumococcal vaccine <65 Aged Out No longer eligible based on patient's age to complete this topic Procedures Procedure Name Priority Date/Time Associated Diagnosis Comments US BREAST LEFT LIMITED Schedule Routine, Read Routine (OP Routine) 01/25/2025 2:01 PM CDT Abnormal mammogram DIAGNOSTIC MAMMOGRAM LEFT W YAAKOV Schedule Routine, Read Routine (OP Routine) 01/25/2025 1:38 PM CDT Abnormal mammogram SCREENING MAMMOGRAM BILATERAL W YAAKOV Schedule Routine, Read Routine (OP Routine) 01/14/2025 11:41 AM CDT Screening mammogram, encounter for from Last 3 Months Results * US Breast Left Limited (01/25/2025 2:01 PM CDT) Anatomical Region Laterality Modality Breast Left Ultrasound 01/25/2025 2:11 PM CDT Impressions 01/25/2025 2:11 PM CDT 1. Incidental left breast benign 4 mm simple cyst at 6:00 (7 cm from the nipple). 2. The central left breast focal asymmetry of concern demonstrates features consistent with benign dense fibroglandular tissue on today's diagnostic mammogram/ultrasound. 3. No evidence of malignancy in the left breast on mammogram (or targeted ultrasound as above). The method of initial detection of finding was 3D screening mammography (Sdbt). OVERALL FINAL ASSESSMENT: BI-RADS Category 2: Benign. RECOMMENDATION: Annual screening mammography is recommended. Electronically signed by: Eric Goldberg M.D. Narrative 01/25/2025 2:11 PM CDT EXAMINATION: LEFT UNILATERAL DIGITAL DIAGNOSTIC MAMMOGRAM AND DIGITAL BREAST TOMOSYNTHESIS; LEFT BREAST SONOGRAM HISTORY: 55-year-old female recalled from screening mammogram for a left breast focal asymmetry. COMPARISON: Screening mammogram dated 01/14/2025 TECHNIQUE: Full field and spot compression digital mammographic views of the LEFT breast were performed, including computer aided detection (CAD) and digital breast tomosynthesis (DBT). Directed ultrasound evaluation of the LEFT breast was performed. BREAST PARENCHYMAL COMPOSITION: There are scattered areas of fibroglandular density. MAMMOGRAM FINDINGS: The focal asymmetry of concern in the central left breast, middle depth, incompletely effaces with spot compression on the CC view. No convincing correlate is seen on today's spot compression MLO view or full-field lateral view. Reviewing tomosynthesis images, this finding appears to localize slightly superior to the nipple, with mammographic appearance suggestive of a benign dense fibroglandular tissue. There are no associated suspicious calcifications or architectural distortion. Incidentally noted within the left breast at 6:00, middle depth, is a 4 mm oval circumscribed equal density mass. No other suspicious finding is seen in the left breast on mammogram. SONOGRAM FINDINGS: Targeted ultrasound of the left breast at 6:00, 7 cm from the nipple demonstrates a 4 x 3 x 4 mm oval circumscribed benign anechoic cyst. Targeted ultrasound of the central left breast extending superiorly along the 12:00 axis demonstrates only normal tissue, including interspersed benign fibroglandular tissue. Given given these findings on ultrasound as well as the aforementioned mammographic findings, the focal asymmetry of concern is considered to represent benign dense fibroglandular tissue. Baudilio Acosta NP IM MAMMO PROCEDURES Final Result * Diagnostic Mammogram Left W Yaakov (01/25/2025 1:38 PM CDT) Anatomical Region Laterality Modality Breast Left Mammography 01/25/2025 2:11 PM CDT Impressions 01/25/2025 2:11 PM CDT 1. Incidental left breast benign 4 mm simple cyst at 6:00 (7 cm from the nipple). 2. The central left breast focal asymmetry of concern demonstrates features consistent with benign dense fibroglandular tissue on today's diagnostic mammogram/ultrasound. 3. No evidence of malignancy in the left breast on mammogram (or targeted ultrasound as above). The method of initial detection of finding was 3D screening mammography (Sdbt). OVERALL FINAL ASSESSMENT: BI-RADS Category 2: Benign. RECOMMENDATION: Annual screening mammography is recommended. Electronically signed by: Eric Goldberg M.D. Narrative 01/25/2025 2:11 PM CDT EXAMINATION: LEFT UNILATERAL DIGITAL DIAGNOSTIC MAMMOGRAM AND DIGITAL BREAST TOMOSYNTHESIS; LEFT BREAST SONOGRAM HISTORY: 55-year-old female recalled from screening mammogram for a left breast focal asymmetry. COMPARISON: Screening mammogram dated 01/14/2025 TECHNIQUE: Full field and spot compression digital mammographic views of the LEFT breast were performed, including computer aided detection (CAD) and digital breast tomosynthesis (DBT). Directed ultrasound evaluation of the LEFT breast was performed. BREAST PARENCHYMAL COMPOSITION: There are scattered areas of fibroglandular density. MAMMOGRAM FINDINGS: The focal asymmetry of concern in the central left breast, middle depth, incompletely effaces with spot compression on the CC view. No convincing correlate is seen on today's spot compression MLO view or full-field lateral view. Reviewing tomosynthesis images, this finding appears to localize slightly superior to the nipple, with mammographic appearance suggestive of a benign dense fibroglandular tissue. There are no associated suspicious calcifications or architectural distortion. Incidentally noted within the left breast at 6:00, middle depth, is a 4 mm oval circumscribed equal density mass. No other suspicious finding is seen in the left breast on mammogram. SONOGRAM FINDINGS: Targeted ultrasound of the left breast at 6:00, 7 cm from the nipple demonstrates a 4 x 3 x 4 mm oval circumscribed benign anechoic cyst. Targeted ultrasound of the central left breast extending superiorly along the 12:00 axis demonstrates only normal tissue, including interspersed benign fibroglandular tissue. Given given these findings on ultrasound as well as the aforementioned mammographic findings, the focal asymmetry of concern is considered to represent benign dense fibroglandular tissue. Baudilio Acosta NP [facility] [place] MAMMO PROCEDURES Final Result * (ABNORMAL) Screening Mammogram Bilateral W Yaakov (01/14/2025 11:41 AM CDT) Anatomical Region Laterality Modality Breast Bilateral Mammography Impressions 01/14/2025 12:43 PM CDT Left 1) Focal Asymmetry: Left breast focal asymmetry in the central region. Assessment: 0 - Incomplete. Diagnostic mammogram with possible ultrasound is recommended. Right No evidence of malignancy. OVERALL BI-RADS FINAL ASSESSMENT: 0 - Incomplete: Needs Additional Imaging Evaluation RECOMMENDATION: Recommend left breast diagnostic mammogram with possible ultrasound. Narrative 01/14/2025 12:43 PM CDT EXAMINATION: Screening Mammogram Bilateral W Yaakov: 01/14/2025 COMPARISON: This is the patient's baseline mammogram. TECHNIQUE: Mammography was performed with 2D and digital breast tomosynthesis (DBT) images. CAD was utilized. BREAST PARENCHYMAL COMPOSITION: There are scattered areas of fibroglandular density. FINDINGS: Left 1) Focal Asymmetry: There is a focal asymmetry seen in the central region of the left breast. This finding needs additional imaging evaluation. Right There is no suspicious mass, calcification, or architectural distortion. us Baudilio Acosta NP [facility] [place] MAMMO PROC[facility]URES Final Result from Last 3 Months Insurance [facility] Care Teams Log Handling Equipment Operator Relationship Specialty Start Date End Date Serina Cook PA [address] [facility] [address] [place] [id number] PCP - General Physician Marker Assembler 08/24/24
--- OUTSIDE RECORDS SUMMARY | 2025-03-06 13:52 | XMS_ITS | Clinical Summary ---
Author Organization [facility] Address [address] [place] [address] Care Team Providers Care Slot Editor Name Role Phone Unavailable Primary Care Provider Unavailabl e Source Comments [facility],non-owned Affiliates and Associated Physician Practices is amultiple site organization consisting of ambulatory clinics and hospital sitesin [place], [place], [place] and [place]. This disclosure is being madepursuant to the Care Everywhere program and may not contain all information available regarding this patient. Last updated 18.[facility] [employer] Social History Tobacco Use Types Packs/Day Years Used Date Smoking Tobacco: Never Assessed Comments Unknown Sex and Gender Information Value Date Recorded Sex Assigned at Not on file Legal Sex Female 1:20 PM SKEWER UP Gender Identity Not on file Sexual Orientation [...] SCREENING 1970 LIPID TESTING 1970 MAMMOGRAM 1970 HIV SCREENING 1985 HEPATITIS C SCREENING 01/05/1988 DTAP/TDAP/TD VACCINES (1 - Tdap) 1989 HEPATITIS B VACCINE (1 of 3 - 19+ 3-dose series) 1989 PAP SMEAR 1991 PNEUMOCOCCAL VACCINE 50+ (1 of 1 - PCV) 01/10/2020 ZOSTER VACCINE (1 of 2) 01/10/2020 DEPRESSION SCREENING 06/27/2024 COVID-19 VACCINE (1 - 2023-2 5 season) 2025 INFLUENZA VACCINE (#1) 2025 HIB VACCINE Aged Out No longer [...]
--- NOTE | 2025-03-25 15:34 | WPDSLEEPSTUD ---
Sleep Study Date of Study: 03/06/25 Ordering Provider: Vernon Hong APRN Interpreting Physician: Collette Lemus MD Sleep Study Type: Polysomnogram Height: 1.68 m Weight: 79.379 kg Body Mass Index: 28.2 Neck Circumference (inches): 14 [place]: 8 Reason for Sleep Study Fragmented sleep, memory decline; referred for sleep testing. * 05/21/2029- [facility] home sleep test showing apnea hypopnea index 8.7 Sleep History Danielle Lennon is a 55-year-old woman with a history of mild obstructive sleep apnea, now with more fragmented sleep and worsening memory. She rarely awakens from sleep short of breath. She occasionally wakes at night with heartburn, belching or coughing.??She frequently snores, but does not know if it is loud enough for others to complain. She occasionally has trouble sleeping when she has a cold. She rarely wakes up gasping for breath during the night. She occasionally has breathing problems at night. She occasionally notices her heart pounding or beating irregularly during the night. She frequently falls asleep during the day, rarely falls asleep while driving. She does not comment on whether or not she experiences loss of muscle tone with strong emotion, if she has paralysis on waking or falling asleep, if she has vivid dreams upon waking or falling asleep, if she is afraid of going to sleep, or if she has nightmares. She rarely recalls her dreams. She constantly feels sad or depressed, and she frequently feels anxious. She does not comment on whether or not she notices parts of her body jerking at night, if she kicks at night, or if she feels crawling or aching feelings in her legs. She never feels leg pain at night. She never has morning jaw pain, nor does she grind her teeth at night. She rarely feels bothered by pain during the day, is rarely awakened by pain during the night. She occasionally wakes up feeling stiff in the morning, occasionally wakes feeling sore or achy in the morning. She occasionally awakens with pain in her neck, spine, or joints. Normal bedtime is 8:30 p.m., falling asleep within 30 minutes, waking 1-2 times at night to go to the bathroom, returns to sleep within 30 minutes. She wakes at 5:30 a.m., reports getting 8 hours of sleep per night. She maintains the same schedule on weekends. She takes naps in the afternoon or evening but a short nap lasting 10-15 minutes is not refreshing. She feels better in the morning compared to other times of day. Habits:??Tobacco: Former smoker Caffeine: 2 servings per day Alcohol: none Recreational substances: none PMFSH Past Medical History Medical History (Updated 03/25/25 @ 16:16 by Collette Lemus MD) JESSE (obstructive sleep apnea) Excessive daytime sleepiness Memory loss Stress incontinence s/p mid urethral sling History of paroxysmal supraventricular tachycardia Breast mass, right Fatigue Vitamin D insufficiency Major depressive disorder, recurrent, moderate Supraventricular tachycardia Surgical History Surgical History Status post creation of urethral sling by suprapubic approach History of cardiac radiofrequency ablation History of left oophorectomy History of hysterectomy Family History Family History Father Depression Mother Depression Family history of osteoarthritis Social History Social History Social History: Years smoked: 1 Smoking status: Former smoker Tobacco type: cigarettes Second hand tobacco smoke exposure: No Smoking end date: 06/27/90 Alcohol intake: current Alcohol use details: rarely Substance use: never Substance use type: does not use Do You Feel Safe in your Home?: Yes Lack of Transportation: No Lack of Food: Never True Current Housing: I Have Housing Concerned About Future Housing: No Difficulty Paying Gas/Electric Bills: No Difficulty Paying for Meds: No Currently Unemployed: No Education: Don't Know Difficulty w/ Childcare or Family Care: No Living arrangements: with family Occupation/Education: occupation Gender identity (if verbalized by the patient): Female Sexual Orientation (if Verbalized by the Patient): Straight or Heterosexual Spiritual care concerns: No Medications Home Medications ?Medication ?Instructions ?Recorded ?Confirmed ?Type carvedilol 12.5 mg tablet 12.5 mg PO Q12H #60 tabs 08/20/24 02/01/25 Rx aripiprazole 2 mg tablet (Abilify) 2 mg PO DAILY 10/31/24 02/01/25 History venlafaxine 225 mg tablet,extended 225 mg PO DAILY 10/31/24 02/01/25 History release 24 hr donepezil 10 mg tablet 10 mg PO QHS 11/02/24 02/01/25 History memantine 10 mg tablet (Namenda) 10 mg PO BID 11/02/24 02/01/25 History lansoprazole 30 mg delayed 30 mg PO DAILY 11/26/24 02/01/25 History release,disintegrating tablet eszopiclone 2 mg tablet 2 mg PO ONCE #1 tablet 02/18/25 02/18/25 Rx Sleep Procedure A full night polysomnogram using the [employer] multi-channel system recorded the standard physiologic parameters including EEG, EOG, submentalis EMG, anterior tibialis EMG, EKG, body position, nasal and oral airflow using nasal pressure sensor and thermistor. Respiratory parameters of chest and abdominal movements were recorded with Respiratory Inductance Plethysmography belts. Oxygen saturation was recorded by pulse oximetry. Video monitoring was also performed. Sleep stages, periodic limb movements, and EEG arousals were scored in 30 second epochs according to the criteria of the AASM Scoring Manual. The Apnea-Hypopnea Index was calculated using CMS guidelines for definition of hypopnea while scoring respiratory events. She self-administered Lunesta 2 mg at the start of the study. Sleep Architecture The total recording time was 508.2 minutes. The total sleep time was 453.5 minutes. Sleep latency was 11.0 minutes. REM latency was 47.5 minutes. Sleep efficiency was 89.2%. The patient had 42 awakenings for an awakening index of 5.6. Wake after sleep onset time was 44.0 minutes. The patient spent 56.5 minutes, 12.5% of total sleep time in Stage N1. The patient spent 292.0 minutes, 64.4% in Stage N2. The patient spent 4.0 minutes, 0.9% in Stage N3. The patient spent 101.0 minutes, 22.3% in Stage REM sleep. Respiratory Analysis The patient had 35 hypopneas, 13 obstructive apneas, 3 mixed apneas, and 8 central apneas for an overall Apnea Hypopnea Index of 7.8. The REM Apnea Hypopnea Index was 17.8. The NREM Apnea Hypopnea Index was 6.5. The patient had a Central Apnea Hypopnea Index of 1.1. There were no Respiratory Effort Related Arousals. The Respiratory Disturbance Index is 13.4 events per hour. There was no evidence of Vern-Lowry Respirations. Arousals There were 131 total arousals for an arousal index of 17.3. There were 73 spontaneous arousals for an index of 9.7. There were 12 arousals due to respiratory events for an index of 1.6. There were 15 arousals due to periodic limb movements for an index of 2.0. There were 25 arousals due to isolated limb movements for an index of 3.3. Periodic Limb Movements The patient had 68 isolated limb movements with an index of 9.0. The patient had 44 periodic limb movements with an index of 5.8. Patient had a total of 112 limb movements with a total limb movement index of 14.8. Oximetry Data The patient had an average oxygen saturation of 93% in sleep with a minimum oxygen saturation of 87% and a maximum oxygen saturation of 99%. The patient had 40 oxygen desaturations that were 4% or greater resulting in an Oxygen Desaturation Index of 5.3. The patient spent 1 minute, 0.2% of total sleep time with an oxygen saturation below 88%. Snoring Profile Snoring was moderate. Cardiac Profile The EKG showed normal sinus rhythm, average pulse rate of 59 bpm with a minimum pulse of rate of 43 bpm and a maximum pulse rate of 116 bpm. On epoch 348, she had 15 beats of wide complex tachycardia, self terminated. EEG Profile Unremarkable, no evidence of seizures. Assessment and Plan Assessment and Plan (1) JESSE (obstructive sleep apnea): Code(s): G47.33 - Obstructive sleep apnea (adult) (pediatric) Status: Acute Assessment and Plan: This is a basic nocturnal polysomnogram on 03/06/2025 shows mild obstructive sleep apnea, the overall apnea-hypopnea index was 13.4 (p>3%) with desaturation to 87%, events worse in supine position, with moderate snoring. She had an apnea hypopnea index of 7.8 using 4% criteria. Supine AHI is 15.8 compared to non-supine index, 6.4, with total AHI 7.8 (p > 4%). She is 55 years old, not required to use the more stringent 4% Medicare guidelines. She is a candidate for PAP therapy. Options include autoPAP or having a dedicated CPAP titration in the sleep lab. I recommend Resmed AirSense 11 AutoPAP 5-15 cm H2O, CPAP mask/filters/tubing and humidifier chamber. This should be used with all episodes of sleep. Compliance should be reviewed within 31-90 days of starting therapy for usage greater than 4 hours per night greater than 70% of the nights. The patient should be asked about symptoms such as excessive daytime sleepiness, quality of sleep, decreased nocturia, increased mental functioning such as memory, mood, and concentration. If she does not respond to this treatment, she should have a full night PAP titration with a sleep aid, no naps on day of testing. Arrhythmia occurred, a 15 beat run of wide complex tachycardia during nonREM sleep with normal saturation when it occurred. She has a diagnosis of obstructive sleep apnea, had mild obstructive sleep apnea in 2019. She has a central apnea index which is low, 1.1. She has a history of supraventricular tachycardia. Evaluation is limited with fewer leads than an EKG. This may be ventricular tachycardia, not supraventricular. Cardiology evaluation advised. Event monitor is indicated to verify. Data The data obtained during this sleep study is adequate for interpretation. Certification This sleep study has been reviewed by a board certified sleep medicine physician.
[2025-03-25 18:58] VITALS: BMI 28.2
== END 2025-03-07 06:29 | disposition home or self-care (01) ==
LOC: ANHCSM 13:13
PROVIDERS: PCP Family Medicine; Visit Provider Nurse Practitioner Family
DX: G47.33 Obstructive sleep apnea (adult) (pediatric) (principal); G47.19 Other hypersomnia
CPT/HCPCS: 95810